=== PATIENT | male | born 1975 | race Caucasian/White ===

== ENCOUNTER 2018-04-10 20:49 | Observation (INO) | payer BC, OTHER, SELFPAY ==
[2018-04-10 22:21] LABS: Absolute Lymphocytes (CBC) 2.4 K/uL (0.7-4.9); Absolute Monocytes 0.8 K/uL (0.1-1.3); Absolute Neutrophil 5.2 K/uL (1.8-8.0); Eosinophils % 2.1 % (0-4.4); Hematocrit 47.5 % (39.6-49.0); Lymphocytes % 27.3 % (15.3-44.8); MPV 7.3 fL (7.6-11.3); Monocytes % 9.8 % (3.3-12.3); RBC Red Blood Cell Count 5.57 M/uL (4.33-5.43)
--- NOTE | 2018-04-10 22:26 | EDPHYS ---
Physician Documentation [facility] Name: Shaquille Delgadillo Age: 42 yrs Sex: Male : 1975 Arrival Date: 04/10/2018 Time: 20:52 Bed 14 Private MD: ED Physician Javon Stevenson HPI: 04/10 22:16 This 42 yrs old Male presents to ER via EMS with complaints of chest pain, romeo anxious. 22:16 The patient or guardian reports chest pain that is located primarily in the anterior romeo chest wall, bilaterally. Onset: just prior to arrival. The pain radiates to back. Associated signs and symptoms: Pertinent positives: shortness of breath. The chest pain is described as dull, a pressure. Duration: The patient or guardian reports a single episode, that is still ongoing. Modifying factors: The symptoms are alleviated by nothing. the symptoms are aggravated by nothing. Severity of pain: At its worst the pain was mild in the emergency department the pain is unchanged. Historical: - Allergies: 20:50 Bactrim; cc3 20:50 PENICILLINS; cc3 - Home Meds: 20:50 Adderall XR 25 mg Oral cp24 1 cap once daily [Active]; cc3 - PMHx: 20:50 ADD/ADHD; Anxiety; panic attacks; tourretts; cc3 - PSHx: 20:50 Cholecystectomy; cc3 - Immunization history:: Adult Immunizations not up to date. - Social history:: Smoking status: Patient/guardian denies using tobacco, never smoked. - Ebola Screening: : No symptoms or risks identified at this time. - Family history:: not pertinent. ROS: 22:16 Constitutional: Negative for fever, chills, and weight loss, Eyes: Negative for injury, romeo pain, redness, and discharge, ENT: Negative for injury, pain, and discharge, Neck: Negative for injury, pain, and swelling, Abdomen/GI: Negative for abdominal pain, nausea, vomiting, diarrhea, and constipation, Back: Negative for injury and pain, : Negative for injury, bleeding, discharge, and swelling, MS/Extremity: Negative for injury and deformity, Skin: Negative for injury, rash, and discoloration, Neuro: Negative for headache, weakness, numbness, tingling, and seizure, Psych: Negative for depression, anxiety, suicide ideation, homicidal ideation, and hallucinations, Allergy/Immunology: Negative for hives, rash, and allergies, Endocrine: Negative for neck swelling, polydipsia, polyuria, polyphagia, and marked weight changes, Hematologic/Lymphatic: Negative for swollen nodes, abnormal bleeding, and unusual bruising. 22:16 Cardiovascular: Positive for chest pain. 22:16 Respiratory: Positive for shortness of breath, at rest. 22:16 MS/extremity: Negative for acute changes. Exam: 22:16 Constitutional: This is a well developed, well nourished patient who is awake, alert, romeo and in no acute distress. Head/Face: Normocephalic, atraumatic. Eyes: Pupils equal round and reactive to light, extra-ocular motions intact. Lids and lashes normal. Conjunctiva and sclera are non-icteric and not injected. Cornea within normal limits. Periorbital areas with no swelling, redness, or edema. ENT: Nares patent. No nasal discharge, no septal abnormalities noted. Tympanic membranes are normal and external auditory canals are clear. Oropharynx with no redness, swelling, or masses, exudates, or evidence of obstruction, uvula midline. Mucous membranes moist. Neck: Trachea midline, no thyromegaly or masses palpated, and no cervical lymphadenopathy. Supple, full range of motion without nuchal rigidity, or vertebral point tenderness. No Meningismus. Chest/axilla: Normal chest wall appearance and motion. Nontender with no deformity. No lesions are appreciated. Cardiovascular: Regular rate and rhythm with a normal S1 and S2. No gallops, murmurs, or rubs. Normal PMI, no JVD. No pulse deficits. Respiratory: Lungs have equal breath sounds bilaterally, clear to auscultation and percussion. No rales, rhonchi or wheezes noted. No increased work of breathing, no retractions or nasal flaring. Abdomen/GI: Soft, non-tender, with normal bowel sounds. No distension or tympany. No guarding or rebound. No evidence of tenderness throughout. Back: No spinal tenderness. No costovertebral tenderness. Full range of motion. Male : Normal genitalia with no discharge or lesions. Skin: Warm, dry with normal turgor. Normal color with no rashes, no lesions, and no evidence of cellulitis. MS/ Extremity: Pulses equal, no cyanosis. Neurovascular intact. Full, normal range of motion. Neuro: Awake and alert, GCS 15, oriented to person, place, time, and situation. Cranial nerves II-XII grossly intact. Motor strength 5/5 in all extremities. Sensory grossly intact. Cerebellar exam normal. Normal gait. Psych: Awake, alert, with orientation to person, place and time. Behavior, mood, and affect are within normal limits. 22:16 Musculoskeletal/extremity: ROM: no acute changes, Circulation is intact in all extremities. Tendon exam: DVT Exam: No signs of deep vein thrombosis. no pain, no swelling, no tenderness, negative Homans' sign noted on exam, no appreciated bluish discoloration, no erythema, no increased warmth. Vital Signs: 20:50 BP 124 / 93; Pulse 84; Resp 20 S; Temp 98.3(O); Pulse Ox 95% on R/A; Weight 79.38 kg cc3 (R); Height 5 ft. 8 in. (172.72 cm) (R); Pain 5/10; 21:30 BP 124 / 94; Pulse 77; Resp 20 S; Pulse Ox 98% on 2 lpm NC; 3 22:30 BP 127 / 99; Pulse 88; Resp 20 S; Pulse Ox 98% on 2 lpm NC; 3 23:45 BP 131 / 95; Pulse 88; Resp 19 S; Pulse Ox 98% on 2 lpm NC; 3 04/11 00:30 BP 128 / 95; Pulse 82; Resp 19 S; Pulse Ox 100% on 2 lpm NC; 3 01:30 BP 131 / 96; Pulse 76; Resp 20 S; Pulse Ox 99% on 2 lpm NC; [facility] 04/10 20:50 Body Mass Index 26.61 (79.38 kg, 172.72 cm) [facility] MDM: 04/10 21:09 Patient medically screened. [facility] 22:16 Data reviewed: vital signs, nurses notes, lab test result(s), EKG, radiologic studies, romeo plain films. 04/10 22:04 Order name: Basic Metabolic Panel; Complete Time: 23:25 3 04/10 22:04 Order name: CBC with Diff; Complete Time: 23:25 [facility] 04/10 22:04 Order name: LFT's; Complete Time: 23:25 [facility] 04/10 22:04 Order name: Magnesium; Complete Time: 23:25 cc3 04/10 22:04 Order name: NT PRO-BNP; Complete Time: 23:25 cc3 04/10 22:04 Order name: PT-INR; Complete Time: 23:25 cc3 04/10 22:04 Order name: Troponin (emerg Dept Use Only); Complete Time: 23:25 cc3 04/11 01:00 Order name: CKMB Creatine Kinase MB EDAK 04/11 01:00 Order name: CKMB Creatine Kinase MB EDAK 04/11 01:00 Order name: Creatine Phosphokinase EDAK 04/11 01:00 Order name: Creatine Phosphokinase EDAK 04/11 01:00 Order name: Lipid Profile EDAK 04/11 01:00 Order name: Troponin I EDAK 04/11 01:00 Order name: Troponin I EDAK 04/10 22:04 Order name: XRAY Chest (1 view) cc3 04/10 22:04 Order name: EKG; Complete Time: 22:05 3 04/10 22:04 Order name: Cardiac monitoring; Complete Time: 22:04 cc3 04/10 22:04 Order name: EKG - Nurse/Tech; Complete Time: 22:04 cc3 04/10 22:04 Order name: IV Saline Lock; Complete Time: 22:04 cc3 04/10 22:04 Order name: Labs collected and sent; Complete Time: 22:15 cc3 04/10 22:04 Order name: O2 Per Protocol; Complete Time: 22:05 3 04/10 22:04 Order name: O2 Sat Monitoring; Complete Time: 22:05 cc3 04/11 00:59 Order name: Heart Healthy EDAK 04/11 00:59 Order name: Echo with Doppler EDMS 04/11 00:59 Order name: EKG Electrocardiogram EDAK 04/11 00:59 Order name: EKG Electrocardiogram EDAK Administered Medications: 22:45 Drug: Aspirin 162 mg Route: PO; cc3 23:00 Follow up: Response: No adverse reaction cc3 22:45 Drug: Lopressor 25 mg Route: PO; cc3 23:00 Follow up: Response: No adverse reaction cc3 22:50 Drug: Lovenox 80 mg Route: Sub-Q; Site: right lower abdomen; cc3 23:00 Follow up: Response: No adverse reaction 3 Disposition: 04/10/18 22:26 Hospitalization ordered by Ronen Cárdenas for Observation. Preliminary diagnosis are Other chest pain, Essential (primary) hypertension, Anxiety disorder, unspecified. - Bed requested for Telemetry/MedSurg (observation). - Status is Observation. cc3 - Condition is Stable. - Problem is new. - Symptoms have improved. UTI on Admission? No Signatures: Dispatcher [employer] EDMS Lizeth Doran RN RN mw Anderson, Corey, MD MD cha Cordel, Charlene cc3 Corrections: (The following items were deleted from the chart) 04/11 01:04 04/10 22:26 Hospitalization Ordered by Ronen Cárdenas MD for Observation. Preliminary diagnosis is Other chest pain; Essential (primary) hypertension; Anxiety disorder, unspecified. Bed requested for Telemetry/MedSurg (observation). Status is Observation. Condition is Stable. Problem is new. Symptoms have improved. UTI on Admission? No. romeo 04/11 01:56 01:04 04/10/2018 22:26 Hospitalization Ordered by Ronen Cárdenas MD for Observation. cc3 Preliminary diagnosis is Other chest pain; Essential (primary) hypertension; Anxiety disorder, unspecified. Bed requested for Telemetry/MedSurg (observation). Status is Observation. Condition is Stable. Problem is new. Symptoms have improved. UTI on Admission? No. monet
--- NOTE | 2018-04-10 22:26 | ER ---
Nurse's Notes [facility] Name: Shaquille Delgadillo Age: 42 yrs Sex: Male : 1975 Arrival Date: 04/10/2018 Time: 20:52 Bed 14 Private MD: Diagnosis: Other chest pain;Essential (primary) hypertension;Anxiety disorder, unspecified Presentation: 04/10 20:50 Presenting complaint: EMS states: intermittent central chest pain and heaviness since cc3 2-3 days. Transition of care: patient was not received from another setting of care. Onset of symptoms was April 10, 2018. Risk Assessment: Do you want to hurt yourself or someone else? Patient reports no desire to harm self or others. Initial Sepsis Screen: Does the patient meet any 2 criteria? No. Patient's initial sepsis screen is negative. Does the patient have a suspected source of infection? No. Patient's initial sepsis screen is negative. Care prior to arrival: None. 20:50 Method Of Arrival: EMS: BASF cc3 20:50 Acuity: RAYNA 3 cc3 Triage Assessment: 20:50 General: Appears in no apparent distress. comfortable, Behavior is calm, cooperative, cc3 appropriate for age. Pain: Complains of pain in central chest. EENT: No signs and/or symptoms were reported regarding the EENT system. Neuro: Level of Consciousness is awake, alert, obeys commands, Oriented to person, place, time, situation, Appropriate for age. Cardiovascular: Reports chest pain, since 2-3 days Patient's skin is warm and dry. Respiratory: Airway is patent Respiratory effort is even, unlabored, Respiratory pattern is regular, symmetrical. GI: Abdomen is round non-distended. : No signs and/or symptoms were reported regarding the genitourinary system. Derm: No signs and/or symptoms reported regarding the dermatologic system. Musculoskeletal: Circulation, motion, and sensation intact. Range of motion: intact in all extremities. Historical: - Allergies: 20:50 Bactrim; cc3 20:50 PENICILLINS; cc3 - Home Meds: 20:50 Adderall XR 25 mg Oral cp24 1 cap once daily [Active]; cc3 - PMHx: 20:50 ADD/ADHD; Anxiety; panic attacks; tourretts; cc3 - PSHx: 20:50 Cholecystectomy; cc3 - Immunization history:: Adult Immunizations not up to date. - Social history:: Smoking status: Patient/guardian denies using tobacco, never smoked. - Ebola Screening: : No symptoms or risks identified at this time. - Family history:: not pertinent. Screenin:50 Abuse screen: Denies threats or abuse. Denies injuries from another. Nutritional cc3 screening: No deficits noted. Tuberculosis screening: No symptoms or risk factors identified. Fall Risk Ambulatory Aid- None/Bed Rest/Nurse Assist (0 pts). Gait- Normal/Bed Rest/Wheelchair (0 pts) Mental Status- Oriented to own ability (0 pts). Assessment: 20:50 General: see triage assessment. cc3 21:35 Reassessment: Patient appears in no apparent distress at this time. Patient and/or cc3 family updated on plan of care and expected duration. Pain level reassessed. Patient is alert, oriented x 3, equal unlabored respirations, skin warm/dry/pink. 22:45 Reassessment: Patient appears in no apparent distress at this time. Patient and/or cc3 family updated on plan of care and expected duration. Pain level reassessed. Patient is alert, oriented x 3, equal unlabored respirations, skin warm/dry/pink. 23:18 Reassessment: Patient appears in no apparent distress at this time. Patient and/or cc3 family updated on plan of care and expected duration. Pain level reassessed. Patient is alert, oriented x 3, equal unlabored respirations, skin warm/dry/pink. 04/11 00:13 Reassessment: Patient appears in no apparent distress at this time. Patient and/or cc3 family updated on plan of care and expected duration. Pain level reassessed. Patient is alert, oriented x 3, equal unlabored respirations, skin warm/dry/pink. 01:15 Reassessment: Repeat Troponin, cpk, ckmb taken and sent to lab as ordered. cc3 01:35 Reassessment: Patient appears in no apparent distress at this time. Patient and/or cc3 family updated on plan of care and expected duration. Pain level reassessed. Patient is alert, oriented x 3, equal unlabored respirations, skin warm/dry/pink. Patient for admission, room available at 206, report called and handed over to MARIA M Benitez for continuity of care. 01:56 Reassessment: Patient left ER for admission vitally stable by wheelchair and on oxygen cc3 escorted by denture laboratory technician Raegan. Vital Signs: 04/10 20:50 BP 124 / 93; Pulse 84; Resp 20 S; Temp 98.3(O); Pulse Ox 95% on R/A; Weight 79.38 kg cc3 (R); Height 5 ft. 8 in. (172.72 cm) (R); Pain 5/10; 21:30 BP 124 / 94; Pulse 77; Resp 20 S; Pulse Ox 98% on 2 lpm NC; cc3 22:30 BP 127 / 99; Pulse 88; Resp 20 S; Pulse Ox 98% on 2 lpm NC; cc3 23:45 BP 131 / 95; Pulse 88; Resp 19 S; Pulse Ox 98% on 2 lpm NC; cc3 04/11 00:30 BP 128 / 95; Pulse 82; Resp 19 S; Pulse Ox 100% on 2 lpm NC; cc3 01:30 BP 131 / 96; Pulse 76; Resp 20 S; Pulse Ox 99% on 2 lpm NC; cc3 04/10 20:50 Body Mass Index 26.61 (79.38 kg, 172.72 cm) cc3 ED Course: 04/10 20:50 Arm band placed on right wrist. Patient notified of wait time. cc3 20:50 Patient has correct armband on for positive identification. Placed in gown. Bed in low cc3 position. Call light in reach. Side rails up X 1. telemetry monitor on. Pulse ox on. NIBP on. 20:52 Patient arrived in ED. al2 21:02 Magnolia Armstrong is Primary Nurse. cc3 21:09 Javon Stevenson MD is Attending Physician. [facility] 21:19 Triage completed. cc3 21:50 Inserted saline lock: 20 gauge in right antecubital area, using aseptic technique. cc3 Blood collected. 22:24 XRAY Chest (1 view) In Process Unspecified. EDMS 22:25 Ronen Cárdenas MD is Hospitalizing Provider. [facility] 04/11 01:35 No provider procedures requiring assistance completed. Patient admitted, IV remains in cc3 place. Administered Medications: 04/10 22:45 Drug: Aspirin 162 mg Route: PO; cc3 23:00 Follow up: Response: No adverse reaction cc3 22:45 Drug: Lopressor 25 mg Route: PO; cc3 23:00 Follow up: Response: No adverse reaction cc3 22:50 Drug: Lovenox 80 mg Route: Sub-Q; Site: right lower abdomen; cc3 23:00 Follow up: Response: No adverse reaction cc3 Outcome: 22:26 Decision to Hospitalize by Provider. romeo 04/11 01:35 Admitted to Med/surg accompanied by tech, via wheelchair, room 206, with oxygen, with cc3 chart, Report called to MARIA M Benitez Condition: stable Instructed on the need for admit, Demonstrated understanding of instructions. 01:56 Patient left the ED. cc3 Signatures: Dispatcher [employer] EDJavon Hastings MD MD cha Love, Magnolia De La O cc3
[2018-04-10 22:27] LABS: Protime INR 1.03
[2018-04-10 22:45] LABS: ALT/SGPT 31 U/L (12-78); AST/SGOT 18 U/L (15-37); Albumin 3.6 g/dL (3.4-5.0); Alkaline Phosphatase 105 U/L (45-117); BUN Blood Urea Nitrogen 14 mg/dL (7-18); Bicarbonate 28 mmol/L (21-32); Bilirubin Direct < 0.1 mg/dL (0-0.2); Bilirubin Total 0.2 mg/dL (0.2-1.0); Glucose Level 105 mg/dL (74-106); Magnesium 2.2 mg/dL (1.8-2.4); NT PRO-BNP 5 pg/mL (<125); Protein, Total 7.1 g/dL (6.4-8.2); Sodium Level 140 mmol/L (136-145); Troponin (Emerg Dept Use Only) < 0.02 ng/mL (0.0-0.045)
[2018-04-10] MEDS ORDERED: ASPIRIN 81 MG CHEWABLE TABLET ONE (22:50)
[2018-04-10] MEDS ORDERED: METOPROLOL TAR 25 MG TAB ONE (22:51)
[2018-04-10] MEDS ORDERED: ENOXAPARIN 80 MG/0.8 ML SQ ONE (22:51)
[2018-04-11] MEDS ORDERED: MORPHINE 4 MG/ML SYR IV PRN (00:55)
[2018-04-11] MEDS ORDERED: ACETAMINOPHEN 500 MG TAB PO PRN (00:55)
[2018-04-11] MEDS ORDERED: ALPRAZOLAM 0.25 MG TABLET PO PRN (00:55)
[2018-04-11 01:50] LABS: CKMB Creatine Kinase MB 1.2 ng/mL (0.3-3.6); Creatine Phosphokinase 90 U/L (39-308); Troponin I < 0.02 ng/mL (0.0-0.045)
[2018-04-11 02:10] VITALS: BMI 27.3
[2018-04-11 02:52] VITALS: O2SAT 99
[2018-04-11 02:57] LABS: Urine Appearance TURBID; Urine Bilirubin NEGATIVE (NEG); Urine Blood NEGATIVE (NEG); Urine Color YELLOW; Urine Glucose NEGATIVE (NEG); Urine Protein NEGATIVE (NEG); Urine Specific Gravity 1.025 (1.005-1.030)
[2018-04-11 03:07] LABS: Urine Microscopic Reflex ORDER UMIC
[2018-04-11 03:29] LABS: Urine Amorphous Sediment 4+ /HPF (NONE SEEN); Urine Bacteria <20 /HPF (NONE SEEN); Urine Culture Reflex Order NOT NEEDED; Urine RBC NONE SEEN /HPF (NONE SEEN)
[2018-04-11] MEDS ORDERED: GUAIFENESIN/CODEINE 5ML UCUP PO PRN (05:00)
[2018-04-11 06:42] LABS: CKMB Creatine Kinase MB < 1.0 ng/mL (0.3-3.6); Creatine Phosphokinase 90 U/L (39-308); HDL Cholesterol 40 mg/dL (40-60); LDL Cholesterol, Calculated 93 (<130); Troponin I < 0.02 ng/mL (0.0-0.045)
[2018-04-11] MEDS ORDERED: INFLUENZA VACCINE (for 3y+) 0.5 ML DOSE IMVAC ONE (08:00)
--- NOTE | 2018-04-11 08:51 | RAD REPORT ---
EXAM DESCRIPTION: RAD - Chest Single View - 04/10/2018 10:24 pm CLINICAL HISTORY: Chest pain COMPARISON: July 2016 TECHNIQUE: AP portable chest image was obtained 2221 hours . FINDINGS: No focal lung parenchymal process. No failure or volume overload. Lung markings match the prior study. Heart and vasculature are normal. No measurable pleural effusion and no pneumothorax. No acute bony abnormality seen. No acute aortic findings suspected. IMPRESSION: No acute cardiopulmonary process. No significant change from comparison.
[2018-04-11] MEDS ORDERED: ASPIRIN EC 81 MG TAB PO SCH (09:00)
[2018-04-11] MEDS ORDERED: METOPROLOL TAR 50 MG TAB PO SCH (09:00)
[2018-04-11] MEDS ORDERED: ENOXAPARIN 40 MG/0.4 ML SQ SCH (09:00)
--- NOTE | 2018-04-11 10:48 | P.HP ---
Certification for Inpatient Patient admitted to: Observation With expected LOS: <2 Midnights Patient will require the following post-hospital care: None Practitioner: I am a practitioner with admitting privileges, knowledge of patient current condition, hospital course, and medical plan of care. Services: Services provided to patient in accordance with Admission requirements found in Title 42 Section 412.3 of the Code of Federal Regulations Patient History Date of Service: 04/11/18 Reason for admission: chest pain rule out acute coronary syndrome History of Present Illness: Patient is a 42-year-old gentleman came to the hospital with chest discomfort. Pain was mainly the sternal region. Patient's symptoms improved after treatment in the emergency room. Patient did not have any lightheadedness nor did he have diaphoresis or shortness of breath. The pain was mainly in the sternal region. Patient was brought in for further evaluation. Patient's EKG and troponins are negative. Further cardiac workup in the morning and possible discharge home in a.m.. Allergies Penicillins Allergy (Verified 04/11/18 02:11) Hives/Rash sulfamethoxazole [From Bactrim] Allergy (Verified 04/11/18 02:11) Hives/Rash trimethoprim [From Bactrim] Allergy (Verified 04/11/18 02:11) Hives/Rash Home Medications: Dextroamphetamine/Amphetamine [Adderall 30 mg Tablet] 1 tab PO DAILY 04/11/18 - Past Medical/Surgical History Has patient received pneumonia vaccine in the past: No Diabetic: No -: anxiety -: panic attack -: ADHD -: cholecyctectomy - Family History Father Medical History: Diabetes Mother Medical History: Heart disease - Social History Smoking Status: Never smoker Alcohol use: Yes CD- Drugs: No Caffeine use: Yes Place of Residence: Home Review of Systems 10-point ROS is otherwise unremarkable Physical Examination - Vital Signs Temperature: 98.2 F Blood Pressure: 119/77 Pulse: 77 Respirations: 14 Pulse Ox (%): 98 - Physical Exam General: Alert, In no apparent distress, Oriented x3 HEENT: Atraumatic, PERRLA, Mucous membr. moist/pink, EOMI, Sclerae nonicteric Neck: Supple, 2+ carotid pulse no bruit, No LAD, Without JVD or thyroid abnormality Respiratory: Clear to auscultation bilaterally, Normal air movement Cardiovascular: Regular rate/rhythm, Normal S1 S2 Gastrointestinal: Normal bowel sounds, Soft and benign, Non-distended, No tenderness Musculoskeletal: No clubbing, No swelling, No tenderness Integumentary: No rashes Neurological: Normal gait, Normal speech, Normal strength at 5/5 x4 extr, Normal tone, Sensation intact, Cranial nerves 3-12 intact, Normal affect Lymphatics: No axilla or inguinal lymphadenopathy - Studies Laboratory Data (last 24 hrs) 04/10/18 21:50: PT 12.2, INR 1.03 04/10/18 21:50: WBC 8.7, Hgb 15.9, Hct 47.5, Plt Count 282 04/10/18 21:50: Sodium 140, Potassium 4.0, BUN 14, Creatinine 1.06, Glucose 105 , Magnesium 2.2, Total Bilirubin 0.2, AST 18, ALT 31, Alkaline Phosphatase 105 Assessment & Plan - Problems (Diagnosis) (1) Chest pain, rule out acute myocardial infarction Current Visit: Yes Status: Acute - Plan 1. Serial troponins and EKG 2. monitor labs an outpatient cardiology follow-up 3. Echocardiogram and outpatient stress testing if needed 4. Anti-platelet therapy, anti coagulation, beta-zion, statin, and O2 as needed 5. IV morphine for pain 6. Nitro p.r.n. Discharge Plan: Home Plan to discharge in: 24 Hours - Advance Directives Does patient have a Living Will: No Does patient have a Durable POA for Healthcare: No - Code Status/Comfort Care Code Status Assessed: Yes Code Status: Full Code Critical Care: No Time Spent Managing PTS Care (In Minutes): 50
--- NOTE | 2018-04-11 16:00 | ECHO ---
HEIGHT: 5 ft 8 in WEIGHT: 179 lb 8 oz DATE OF STUDY: 04/11/[address]: Ronen Cárdenas MD 2-DIMENSIONAL: YES M.MODE: YES DOPPLER: YES COLOR FLOW: YES TDS: NO PORTABLE: NO DEFINITY: NO BUBBLE STUDY: NO DIAGNOSIS: CHEST PAIN TO RULE OUT ACUTE CORONARY SYNDROME CARDIAC HISTORY: CATHERIZATION: NO SURGERY: NO PROSTHETIC VALVE: NO PACEMAKER: NO MEASUREMENTS (cm) DIASTOLIC (NORMALS) SYSTOLIC (NORMALS) IVSd 0.8 (0.6-1.2) LA Diam 2.2 (1.9-4.0) LVEF 53% LVIDd 3.6 (3.5-5.7) LVIDs 2.7 (2.0-3.5) %FS 26% LVPWd 1.0 (0.6-1.2) Ao Diam 2.3 (2.0-3.7) 2 DIMENSIONAL ASSESSMENT: RIGHT ATRIUM: NORMAL LEFT ATRIUM: NORMAL RIGHT VENTRICLE: NORMAL LEFT VENTRICLE: NORMAL TRICUSPID VALVE: NORMAL MITRAL VALVE: NORMAL PULMONIC VALVE: NORMAL AORTIC VALVE: NORMAL PERICARDIAL EFFUSION: NONE AORTIC ROOT: NORMAL LEFT VENTRICULAR WALL MOTION: NORMAL. DOPPLER/COLOR FLOW: NORMAL. COMMENTS: NORMAL 2D ECHOCARDIOGRAM WITH DOPPLER. TECHNOLOGIST: LAINEY HURD
[2018-04-11 16:08] VITALS: BP 110/66; TEMP 98.1
--- NOTE | 2018-04-11 16:17 | EKG ---
Test Date: 2018-04-10 Test Time: 21:32:01 Assistant Pressman: ESTEBAN MEASUREMENT RESULTS: Intervals: Rate: 74 AR: 140 QRSD: 84 QT: 356 QTc: 395 Ronald: P: 48 AR: 140 QRS: 44 T: 39 INTERPRETIVE STATEMENTS: Normal sinus rhythm with sinus arrhythmia Normal ECG Compared to ECG 07/22/2016 16:29:44 Sinus tachycardia no longer present Electronically Signed On 04-11-18 16:16:55 CLERICAL WAREHOUSEMAN by Paul Silver
== END 2018-04-11 17:21 | disposition home or self-care (01) ==
LOC: ER 20:49 → ERHOLD 04-11 00:55 → 2ND 04-11 01:40
PROVIDERS: ADMIT Hospitalist; ATTEND Hospitalist
DX: R07.9 Chest pain, unspecified (principal); F41.9 Anxiety disorder, unspecified; F90.9 Attention-deficit hyperactivity disorder, unspecified type; Z88.0 Allergy status to penicillin; Z88.2 Allergy status to sulfonamides
CPT/HCPCS: 36415; 71045; 80048; 80061; 80076; 81003; 81015; 82550; 82553; 83735; 83880; 84484; 85025; 85610; 87070; 87205; 93005; 93306; 96372; 99285; G0378; J1650

== ENCOUNTER 2018-12-27 14:12 | Emergency (ER) | payer OTHER ==
[2018-12-27] MEDS ORDERED: MORPHINE 4 MG/ML SYR ONE (14:32)
[2018-12-27] MEDS ORDERED: ONDANSETRON 4 MG/2 ML VIAL ONE (14:32)
[2018-12-27] MEDS ORDERED: NA CHLORIDE 0.9% 1,000 ML ONE (14:33)
[2018-12-27 14:39] LABS: Absolute Lymphocytes (CBC) 2.4 K/uL (0.7-4.9); Basophils % 0.9 % (0-1.3); Hematocrit 50.1 % (39.6-49.0); Lymphocytes % 23.3 % (15.3-44.8); RBC Red Blood Cell Count 5.84 M/uL (4.33-5.43)
[2018-12-27 14:57] LABS: Albumin 3.9 g/dL (3.4-5.0); Bilirubin Direct 0.1 mg/dL (0-0.2); Bilirubin Total 0.3 mg/dL (0.2-1.0); Potassium 4.4 mmol/L (3.5-5.1); Protein, Total 7.9 g/dL (6.4-8.2)
--- NOTE | 2018-12-27 15:26 | RAD REPORT ---
EXAM DESCRIPTION: CT - Stone Protocol - 12/27/2018 3:11 pm CLINICAL HISTORY: Right lower quadrant pain, right flank pain COMPARISON: None. TECHNIQUE: Axial 5 mm thick images were obtained without oral or IV contrast. The [id number] span s the entirety of the system partially obscuring uppermost abdomen and lung bases. All CT scans are performed using dose optimization technique as appropriate and may include automated exposure control or mA/KV adjustment according to patient size. FINDINGS: [id number] right-sided hydronephrosis is present secondary to a 5 millimeter stone l ocated at the pelvic inlet. When viewed from a KUB projection the stone is superimposed on the lower aspect right sacral ala. Punctate nonobstructing calculus is seen in the lower pole of the right kidn ey. No left-sided hydronephrosis or left stone. Right kidney is edematous when compared to the left. No suspicious renal masses. Isodense masses and pyelonephritis are not excluded on a stone protocol C T scan. No bladder calculus. No bladder wall thickening or mass. No significant adrenal finding. Imaged portions of the liver, spleen and pancreas show no suspicious findings on non-contrast imaging . Cholecystectomy clips are present. No biliary tree dilatation. No suspicious bowel findings. Bowel assessment is limited in the absence of oral and IV contrast. Cec um is low lying along the anterior floor the pelvis. No appendicitis. No hernia, mass or bulky lymphadenopathy noted. No free air, free fluid or inflammatory stranding. No significant bony abnormality. IMPRESSION: Mild to moderate right hydronephrosis secondary to a 5 mm obstructing calculus at the pe lvic inlet. When viewed from a KUB projection, the obstructing calculus superimposed on the inferior right sacral ala. Isodense masses and pyelonephritis are not excluded on stone protocol technique.
[2018-12-27] MEDS ORDERED: KETOROLAC 30 MG/ML INJ ONE (15:47)
[2018-12-27] MEDS ORDERED: TAMSULOSIN 0.4 MG SR CAP ONE (15:47)
[2018-12-27] MEDS ORDERED: MAGNESIUM SULFATE 1 gm IVPB 1 GM/100 ML BAG IV ONE (15:48)
[2018-12-27] MEDS ORDERED: CEFTRIAXONE/SWI 1gm 1 GM/10 ML SYR ONE (15:48)
[2018-12-27 16:07] LABS: Urine Blood 2+ (NEG); Urine Glucose NEGATIVE (NEG); Urine Protein NEGATIVE (NEG)
[2018-12-27 16:20] LABS: Urine Bacteria <20 /HPF (NONE SEEN); Urine Culture Reflex Order NOT NEEDED
--- NOTE | 2018-12-27 16:47 | ER ---
Nurse's Notes [facility] Name: Shaquille Delgadillo Age: 43 yrs Sex: Male : 1975 Arrival Date: 12/27/2018 Time: 14:14 Bed 25 Private MD: Diagnosis: Calculus of ureter-right Presentation: 12/27 14:23 Presenting complaint: Patient states: RLQ pain that radiates towards testicles, began ss today. Patient reports this pain occurred once before a week ago, but went away and was located more towards R flank area. Transition of care: patient was not received from another setting of care. Onset of symptoms was December 27, 2018. Risk Assessment: Do you want to hurt yourself or someone else? Patient reports no desire to harm self or others. Initial Sepsis Screen: Does the patient meet any 2 criteria? No. Patient's initial sepsis screen is negative. Does the patient have a suspected source of infection? No. Patient's initial sepsis screen is negative. Care prior to arrival: None. 14:23 Acuity: RAYNA 3 ss 14:23 Method Of Arrival: Ambulatory ss Historical: - Allergies: 14:25 Bactrim; ss 14:25 PENICILLINS; ss - PMHx: 14:25 ADD/ADHD; Anxiety; Panic Attacks; tourretts; ss - PSHx: 14:25 Cholecystectomy; ss - Immunization history:: Adult Immunizations up to date. - Social history:: Smoking status: Patient/guardian denies using tobacco. - Ebola Screening: : Patient denies exposure to infectious person Patient denies travel to an Ebola-affected area in the 21 days before illness onset. Screenin:38 Abuse screen: Denies threats or abuse. Nutritional screening: No deficits noted. tr5 Tuberculosis screening: No symptoms or risk factors identified. Fall Risk None identified. Assessment: 14:38 General: Appears uncomfortable, Behavior is appropriate for age, restless. Pain: tr5 Complains of pain in right upper quadrant Pain radiates to groin Pain currently is 10 out of 10 on a pain scale. Quality of pain is described as crampy, Pain began 1 day ago. Is continuous. Neuro: Level of Consciousness is awake, alert, obeys commands, Oriented to person, place, time. Cardiovascular: Heart tones present Capillary refill < 3 seconds. Respiratory: Airway is patent Respiratory effort is even, unlabored, Respiratory pattern is regular, symmetrical. GI: Bowel sounds present X 4 quads. Abdomen is tender to palpation. : Reports Difficulty urinating. EENT: No signs and/or symptoms were reported regarding the EENT system. Derm: No signs and/or symptoms reported regarding the dermatologic system. Musculoskeletal: No signs and/or symptoms reported regarding the musculoskeletal system. 15:30 Reassessment: Patient appears in no apparent distress at this time. Patient and/or tr5 family updated on plan of care and expected duration. Pain level reassessed. Patient is alert, oriented x 3, equal unlabored respirations, skin warm/dry/pink. Patient states feeling better. Vital Signs: 14:25 BP 141 / 99; Pulse 72; Resp 20; Temp 97.9(TE); Pulse Ox 98% on R/A; Weight 83.91 kg; ss Height 5 ft. 8 in. (172.72 cm); Pain 9/10; 15:30 BP 126 / 86; Pulse 77; Resp 16; Pulse Ox 97% on R/A; tr5 14:25 Body Mass Index 28.13 (83.91 kg, 172.72 cm) ss ED Course: 14:14 Patient arrived in ED. as 14:17 Javon Cleveland PA is PHCP. cp 14:17 Guillermo Asif MD is Attending Physician. cp 14:24 Triage completed. ss 14:25 Arm band placed on right wrist. ss 14:31 Hubert Camara, RN is Primary Nurse. tr5 14:35 Initial lab(s) drawn, by tn, sent to lab. Inserted saline lock: 20 gauge in left jp3 antecubital area, using aseptic technique. Blood collected. 14:36 Bed in low position. Call light in reach. Verbal reassurance given. Pulse ox on. NIBP jp3 on. 14:36 Lipase Sent. jp3 14:36 Hepatic Function Sent. jp3 14:36 Creatinine for Radiology Sent. jp3 14:36 CBC with Diff Sent. jp3 15:[address] via wheelchair. tr5 15:10 CT completed. Patient tolerated procedure well. Patient moved back from CT. kw1 15:13 CT Stone Protocol: right side abdomen pain In Process Unspecified. EDMS 16:40 Brandon Burden MD is Referral Physician. cp 17:08 No provider procedures requiring assistance completed. IV discontinued. tr5 Administered Medications: 14:37 Drug: morphine 4 mg {Note: RASS:0.} Route: IVP; Site: left antecubital; tr5 15:40 Follow up: Response: Pain is decreased tr5 14:37 Drug: Zofran 4 mg Route: IVP; Site: left antecubital; tr5 15:39 Follow up: Response: Nausea is decreased tr5 14:38 Drug: NS 0.9% 1000 ml Route: IV; Rate: 1000 ml/hr; Site: left antecubital; tr5 15:59 Drug: Rocephin 1 grams Route: IV; Rate: calculated rate; Site: left antecubital; tr5 15:59 Drug: Magnesium Sulfate 1 grams Route: IVPB; Infused Over: 30 mins; Site: left tr5 antecubital; 15:59 Drug: Flomax 0.4 mg Route: PO; tr5 15:59 Drug: TORadol 30 mg Route: IVP; Site: left antecubital; tr5 Outcome: 16:47 Discharge ordered by MD. cp 17:08 Discharged to home ambulatory. tr5 17:08 Condition: stable 17:08 Discharge instructions given to patient, Instructed on discharge instructions, follow up and referral plans. Demonstrated understanding of instructions, follow-up care, medications, Prescriptions given X 4. 17:16 Patient left the ED. tr5 Signatures: Dispatcher [employer] Cara Piedra Shelby, RN RN ss Page, Corey, PA PA cp Wilhelm, Kimberly kw1 David Venegas jp3 Hubert Camara RN RN tr5
--- NOTE | 2018-12-27 16:48 | EDPHYS ---
Physician Documentation [facility] Name: Shaquille Delgadillo Age: 43 yrs Sex: Male : 1975 Arrival Date: 12/27/2018 Time: 14:14 Bed 25 Private MD: ED Physician Guillermo Asif HPI: 12/27 14:35 This 43 yrs old Male presents to ER via Ambulatory with complaints of cp Abdominal Pain. 14:35 The patient presents with abdominal pain right flank pain. Onset: The symptoms/episode cp began/occurred suddenly, this morning. The symptoms radiate to right testicle. Associated signs and symptoms: Pertinent positives: testicular pain, Pertinent negatives: blood in stools, constipation, diarrhea, fever, vomiting. The symptoms are described as constant. Severity of pain: in the emergency department the pain is unchanged despite EMS interventions. Historical: - Allergies: 14:25 Bactrim; ss 14:25 PENICILLINS; ss - PMHx: 14:25 ADD/ADHD; Anxiety; Panic Attacks; tourretts; ss - PSHx: 14:25 Cholecystectomy; ss - Immunization history:: Adult Immunizations up to date. - Social history:: Smoking status: Patient/guardian denies using tobacco. - Ebola Screening: : Patient denies exposure to infectious person Patient denies travel to an Ebola-affected area in the 21 days before illness onset. ROS: 14:45 Constitutional: Negative for body aches, chills, fever, poor PO intake. cp 14:45 Eyes: Negative for injury, pain, redness, and discharge. cp 14:45 ENT: Negative for drainage from ear(s), ear pain, sore throat, difficulty swallowing, difficulty handling secretions. 14:45 Respiratory: Negative for cough, wheezing. 14:45 Abdomen/GI: Positive for abdominal pain, nausea, vomiting, Negative for diarrhea, constipation, anorexia, black/tarry stool, rectal bleeding. 14:45 Skin: Negative for cellulitis, rash. 14:45 Neuro: Negative for altered mental status, headache, weakness. 14:45 All other systems are negative. Exam: 14:50 Head/Face: Normocephalic, atraumatic. cp 14:50 Constitutional: The patient appears in no acute distress, alert, awake, non-toxic, well developed, well nourished, in obvious pain, uncomfortable. 14:50 Eyes: Periorbital structures: appear normal, Conjunctiva: normal, no exudate, no injection, Sclera: no appreciated abnormality, Lids and lashes: appear normal, bilaterally. 14:50 ENT: External ear(s): are unremarkable, Nose: is normal, Mouth: is normal, Posterior cp pharynx: is normal, airway is patent, no erythema, no exudate. 14:50 Chest/axilla: Inspection: normal, Palpation: is normal, no crepitus, no tenderness. 14:50 Cardiovascular: Rate: normal, Rhythm: regular. 14:50 Respiratory: the patient does not display signs of respiratory distress, Respirations: normal, no use of accessory muscles, no retractions, no splinting, no tachypnea, labored breathing, is not present, Breath sounds: are clear throughout, no decreased breath sounds, no stridor, no wheezing. 14:50 Abdomen/GI: Inspection: abdomen appears normal, Bowel sounds: active, all quadrants, Palpation: soft, in all quadrants, severe abdominal tenderness, in the anterior aspect of right lateral abdomen and right lower quadrant, rebound tenderness, is not appreciated, voluntary guarding, is elicited in the anterior aspect of right lateral abdomen and right lower quadrant. 14:50 Skin: no rash present. 14:50 : Male external genitalia: normal, no swelling, no tenderness. cp Vital Signs: 14:25 BP 141 / 99; Pulse 72; Resp 20; Temp 97.9(TE); Pulse Ox 98% on R/A; Weight 83.91 kg; ss Height 5 ft. 8 in. (172.72 cm); Pain 9/10; 15:30 BP 126 / 86; Pulse 77; Resp 16; Pulse Ox 97% on R/A; tr5 14:25 Body Mass Index 28.13 (83.91 kg, 172.72 cm) ss MDM: 14:35 Patient medically screened. cp 15:00 Differential diagnosis: bowel obstruction, Pyelonephritis, Testicular Torsion, cp Ureterolithiasis, urinary tract infection. 16:46 Data reviewed: vital signs, nurses notes, lab test result(s), radiologic studies, CT cp scan, and as a result, I will discharge patient. 16:46 Counseling: I had a detailed discussion with the patient and/or guardian regarding: the cp historical points, exam findings, and any diagnostic results supporting the discharge/admit diagnosis, lab results, radiology results, to return to the emergency department if symptoms worsen or persist or if there are any questions or concerns that arise at home. Response to treatment: the patient's symptoms have markedly improved after treatment, VSS. Pain markedly improved and vomiting resolved. Will discharge to home for continued monitoring. 12/27 14:28 Order name: Basic Metabolic Panel; Complete Time: 15:31 cp 12/27 15:32 Interpretation: Normal except: GLUC 119; GFR 69. cp 12/27 14:28 Order name: CBC with Diff; Complete Time: 15:31 cp 12/27 15:32 Interpretation: Normal except: RBC 5.84; HCT 50.1; MPV 7.0. cp 12/27 14:28 Order name: Creatinine for Radiology; Complete Time: 15:31 cp 12/27 14:28 Order name: Hepatic Function; Complete Time: 15:31 cp 12/27 14:28 Order name: Lipase; Complete Time: 15:31 cp 12/27 14:28 Order name: UA MICROSCOPIC cp 12/27 14:29 Order name: CT Stone Protocol: right side abdomen pain; Complete Time: 15:31 cp 12/27 16:04 Order name: Urine Dipstick--Ancillary (enter results) eb 12/27 14:28 Order name: IV Saline Lock; Complete Time: 14:36 cp 12/27 14:28 Order name: Labs collected and sent; Complete Time: 14:36 cp 12/27 15:34 Order name: PO challenge; Complete Time: 15:59 cp Administered Medications: 14:37 Drug: morphine 4 mg {Note: RASS:0.} Route: IVP; Site: left antecubital; tr5 15:40 Follow up: Response: Pain is decreased tr5 14:37 Drug: Zofran 4 mg Route: IVP; Site: left antecubital; tr5 15:39 Follow up: Response: Nausea is decreased tr5 14:38 Drug: NS 0.9% 1000 ml Route: IV; Rate: 1000 ml/hr; Site: left antecubital; tr5 15:59 Drug: Rocephin 1 grams Route: IV; Rate: calculated rate; Site: left antecubital; tr5 15:59 Drug: Magnesium Sulfate 1 grams Route: IVPB; Infused Over: 30 mins; Site: left tr5 antecubital; 15:59 Drug: Flomax 0.4 mg Route: PO; tr5 15:59 Drug: TORadol 30 mg Route: IVP; Site: left antecubital; tr5 Disposition: 12/27/18 16:47 Discharged to Home. Impression: Calculus of ureter - right. - Condition is Stable. - Discharge Instructions: Kidney Stones, Renal Colic. - Prescriptions for Tylenol- Codeine #3 300-30 mg Oral Tablet - take 2 tablets by ORAL route every 6 hours As needed; 20 tablet. Zofran 4 mg Oral Tablet - take 1 tablet by ORAL route every 12 hours As needed; 20 tablet. Flomax 0.4 mg Oral Capsule, Sust. Release 24 hr - take 1 capsule by ORAL route once daily As needed 1/2 hour following the same meal each day; 7 capsule. Cipro 500 mg Oral Tablet - take 1 tablet by ORAL route every 12 hours for 7 days; 14 tablet. - Medication Reconciliation Form, Thank You Letter, Antibiotic Education, Prescription Opioid Use, Work release form form. - Follow up: Brandon Burden MD; When: 2 - 3 days; Reason: symptoms. - Problem is new. - Symptoms have improved. Signatures: Dispatcher [employer] EDJeanie Woodward RN RN Javon Bernard PA PA cp Rodriguez, Tommie, RN RN tr5 Corrections: (The following items were deleted from the chart) 17:16 16:47 12/27/2018 16:47 Discharged to Home. Impression: Calculus of ureter - right. tr5 Condition is Stable. Forms are Medication Reconciliation Form, Thank You Letter, Antibiotic Education, Prescription Opioid Use. Follow up: Brandon Burden; When: 2 - 3 days; Reason: symptoms. Problem is new. Symptoms have improved. cp
[2018-12-27 19:16] VITALS: TEMP 97.9
[2018-12-27 19:18] VITALS: BP 126/86; O2SAT 97
== END 2018-12-27 17:16 | disposition home or self-care (01) ==
LOC: ER 14:12
DX: N20.1 Calculus of ureter (principal); Z88.0 Allergy status to penicillin; Z88.1 Allergy status to other antibiotic agents
CPT/HCPCS: 85025; 80048; 36415; 80076; 83690; 76377; 74176; 96375; 96374; 99284; J3475; J0696; J7030; J2405; 81003; 81015

== ENCOUNTER → 2023-05-22 | Emergency (ER) | payer OTHER, SELFPAY ==
--- OUTSIDE RECORDS SUMMARY | 2023-05-22 20:17 | XMS REPORT | Continuity of Care Document ---
Author Name Unknown Address [address] [facility] [address] [place] [address] [facility] thconnect Address [address] [facility] 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 [address] 94 ON 9 [id number] 2023 00:00:00 [facility] 2 [id number] 2020 00:00:00 Problems Condition Name Condition Details Condition Category Status Onset Date Resolution Date Last Treatment Date Treating Clinician Comments Source Well adult exam Well adult exam Disease Active 11-05 00:00: 00 Hannah Corona - Externa l Hiatal hernia with GERD Hiatal hernia with GERD Disease Active 11-05 00:00: 00 Hannah Corona - Externa l Acute pain of right shoulder Acute pain of right shoulder Disease Active 2021-03 00:00: 00 Hannah Corona - Externa l Attention deficit hyperactiv ity disorder (ADHD) Attention deficit hyperactiv ity disorder (ADHD) Disease Active 10-10 00:00: 00 Hannah richardson Tourette's - Unchanged Tourette's - Unchanged Disease Active 10-10 00:00: 00 Hannah Dooleya l Kidney stone Kidney stone Problem Active [facility] Hydronephr osis with urinary obstructio n due to renal calculus Hydronephr osis with urinary obstructio n due to renal calculus Problem Active [facility] Allergies, Adverse Reactions, Alerts Allergy Name Allergy Type Status Severity Reaction(s) Onset Date Inactive Date Treating Clinician Comments Source Na Benzoate -Sulfame thoxazol e-Trimet hoprim Propensi ty to adverse reaction s Active Nausea and Vomiting 04-07 00:00: 00 Other reaction( s): Unknown Hannah richardson Bactrim Adverse Reaction Active Info Not Available [facility] Social History Social Habit Start Date Stop Date Quantity Comments Source Exposure to SARS-CoV-2 (event) Not sure Hannah gonzalez Gender identity Tawana Corona - External Sexual orientation José Luis Corona - External Alcohol intake 2023-03-08 00:00:00 2023-03-08 00:00:00 Ex-drinker (finding) Hannah Corona - External History of Social function 2022-11-26 00:00:00 2022-11-26 00:00:00 Hannah Corona - External Tobacco use and exposure 2022-11-05 00:00:00 2022-11-05 00:00:00 Smokeless tobacco non-user Hannah Corona - External Education - What is the highest level of school you have completed or the highest degree you have received? 2022-11-05 00:00:00 2022-11-05 00:00:00 Bachelor's degree (e.g., BA, AB, BS) Hannah Corona - External Sex Assigned At 1975 00:00:00 1975 00:00:00 Hannah Corona - External Smoking Status Start Date Stop Date Source Never smoked tobacco Hannah Corona - External Medications Ordered Medication Name Filled Medication Name Start Date Stop Date Current Medication? Ordering Clinician Indication Dosage Frequency Signature (SIG) Comments Components Source Amphetamine -Dextroamph etamine 30 MG oral Capsule 24 Hour Sustained Release 2022-03 00:00: 00 Yes [id number] 30mg Take 1 capsule (30 mg total) by mouth every morning. Hannah Dooleya dylan Amphetamine -Dextroamph etamine 30 MG oral Capsule 24 Hour Sustained Release 2022-03 00:00: 00 03-08 00:00 :00 No [id number] 30mg Take 1 capsule (30 mg total) by mouth every morning. Hannah richardson Acetaminoph en (TYLENOL) 325 MG oral Tablet tablet 11-05 13:24: 49 11-05 00:00 :00 No 1{tbl} Take 1 tablet (325 mg total) by mouth as needed Hannah richardson Ondansetron (ZOFRAN) 4 MG oral TABLET DISPERSIBLE 11-05 13:24: 46 11-05 00:00 :00 No 1 tablet on the tongue and allow to dissolve Hannah richardson Amphetamine -Dextroamph etamine 30 MG oral Capsule 24 Hour Sustained Release 11-05 00:00: 00 Yes [id number] 30mg Take 1 capsule (30 mg total) by mouth every morning. Hannah richardson Amphetamine -Dextroamph etamine 30 MG oral Capsule 24 Hour Sustained Release 10-09 00:00: 00 11-05 00:00 :00 No [id number] 30mg Take 1 capsule (30 mg total) by mouth every morning Hannah richardson Ondansetron (ZOFRAN) 4 MG oral TABLET DISPERSIBLE 07-05 14:12: 56 Yes 1 tablet on the tongue and allow to dissolve Hannah richardson Acetaminoph en (TYLENOL) 325 MG oral Tablet tablet 07-05 14:12: 56 Yes 325mg Take 1 tablet (325 mg total) by mouth as needed Hannah richardson Amphetamine -Dextroamph etamine 30 MG oral Capsule 24 Hour Sustained Release 2023-0 4-10 00:00: 00 Yes [id number] 30mg Take 1 capsule (30 mg total) by mouth every morning Hannah richardson Acetaminoph en (TYLENOL) 325 MG oral Tablet tablet 2021-03 16:05: 26 Yes 1{tbl} Take 1 tablet by mouth as needed Hannah richardson Ondansetron (ZOFRAN) 4 MG oral TABLET DISPERSIBLE 2021-03 16:05: 14 Yes 1 tablet on the tongue and allow to dissolve Hannah richardson Tamsulosin HCl 0.4 MG oral Capsule 2021-03 16:05: 12 01-12 00:00 :00 No 1{capsu le} 1 capsule Hannah richardson Ciprofloxac in HCl 500 MG oral Tablet 2021-03 16:04: 24 01-12 00:00 :00 No 1{tbl} Take 1 tablet by mouth Hannah richardson Amphetamine -Dextroamph etamine 30 MG oral Capsule 24 Hour Sustained Release 2021-03 00:00: 00 Yes [id number] 30mg Take 1 capsule (30 mg total) by mouth every morning Hannah richardson Amphetamine -Dextroamph etamine 30 MG oral Capsule 24 Hour Sustained Release 9-23 00:00: 00 01-12 00:00 :00 No [id number] 30mg Take 1 capsule (30 mg total) by mouth every morning Hannah richardson Tamsulosin HCl 0.4 MG oral Capsule 05-10 16:04: 00 Yes 1{capsu le} 1 capsule Hannah Secarlos Ondansetron (ZOFRAN) 4 MG oral TABLET DISPERSIBLE 05-10 16:04: 00 Yes 1 tablet on the tongue and allow to dissolve Hannah Corona Ciprofloxac in HCl 500 MG oral Tablet 05-10 16:04: 00 Yes 1{tbl} Take 1 tablet by mouth Hannah Corona Acetaminoph en (TYLENOL) 325 MG oral Tablet tablet 05-10 16:04: 00 Yes 1{tbl} Take 1 tablet by mouth as needed Hannah Corona Amphetamine -Dextroamph etamine 30 MG oral Capsule 24 Hour Sustained Release 05-10 00:00: 00 Yes [id number] 30mg Take 1 capsule (30 mg total) by mouth every morning Hannah Secarlos Amphetamine -Dextroamph etamine 30 MG oral Capsule 24 Hour Sustained Release 04-07 00:00: 00 05-10 00:00 :00 No [id number] 30mg Take 1 capsule (30 mg total) by mouth every morning Hannah Corona Tamsulosin HCl 0.4 MG oral Capsule 2020-03 09:11: 25 Yes 1{capsu le} 1 capsule Hannah Corona Ondansetron (ZOFRAN) 4 MG oral TABLET DISPERSIBLE 2020-03 09:11: 25 Yes 1 tablet on the tongue and allow to dissolve Hannah Corona Ciprofloxac in HCl 500 MG oral Tablet 2020-03 09:11: 25 Yes 1{tbl} Take 1 tablet by mouth Hannah Corona Acetaminoph en (TYLENOL) 325 MG oral Tablet tablet 2020-03 09:11: 25 Yes 1{tbl} Take 1 tablet by mouth as needed Hannah Corona Amphetamine -Dextroamph etamine 30 MG oral Capsule 24 Hour Sustained Release 2020-03 00:00: 00 Yes [id number] 30mg Take 1 capsule (30 mg total) by mouth every morning Hannah Corona Cyclobenzap rine HCl 5 MG oral Tablet 2020-03 00:00: 00 Yes [id number] 9106 5mg Q8H Take 1 tablet (5 mg total) by mouth every 8 hours as needed for muscle spasms Hannah Corona Cyclobenzap rine HCl 5 MG oral Tablet 2020-03 00:00: 00 Yes [id number] 9106 5mg Q8H Take 1 tablet (5 mg total) by mouth every 8 hours as needed for muscle spasms Hannah Corona Cyclobenzap rine HCl 5 MG oral Tablet 2020-03 00:00: 00 01-12 00:00 :00 No [id number] 9106 5mg [id number] 3D Take 1 tablet (5 mg total) by mouth every 8 hours as needed for muscle spasms Hannah Corona - Externa l Amphetamine -Dextroamph etamine 30 MG oral Capsule 24 Hour Sustained Release 2020-03 014 00:00: 00 01-27 00:00 :00 No [id number] 30mg Take 1 capsule (30 mg total) by mouth every morning Hannah Corona Tamsulosin HCl Tamsulosin HCl Yes Ivana Apolinar 1 capsule [facility] Ondansetron Ondansetron Yes Ivana Foyil 1 tablet on the tongue and allow to dissolve [facility] Adderall XR Adderall XR Yes Ivana Foyil 1 capsule in the morning [facility] Acetaminoph en Acetaminoph en Yes Ivana Foyil 1 tablet as needed [facility] Ciprofloxac in HCl Ciprofloxac in HCl Yes Ivana Foyil 1 tablet [facility] Immunizations Ordered Immunization Name Filled Immunization Name Date Status Comments Source Tdap- (Boostrix, Adacel) 2022-11-05 00:00:00 Completed Hannah Corona - External Covid-19 Vaccine ([employer]), Mrna-lnp, Duy Protein, Pf, 30mcg/0.3ml,IM 2020-07-02 00:00:00 Completed Hannah Corona - External Covid-19 Vaccine ([employer]), Mrna-lnp, Duy Protein, Pf, 30mcg/0.3ml,IM 2020-07-02 00:00:00 Completed Hannah Corona - External Covid-19 Vaccine ([employer]), Mrna-lnp, Duy Protein, Pf, 30mcg/0.3ml,IM 2020-07-02 00:00:00 Completed Hannah Corona - External Covid-19 Vaccine ([employer]), Mrna-lnp, Duy Protein, Pf, 30mcg/0.3ml,IM 2020-07-02 00:00:00 Completed Hannah Corona Covid-19 Vaccine ([employer]), Mrna-lnp, Duy Protein, Pf, 30mcg/0.3ml,IM 2020-07-02 00:00:00 Completed Hannah Seybold Covid-19 Vaccine ([employer]izer), Mrna-lnp, Duy Protein, Pf, 30mcg/0.3ml,IM 2020-07-02 00:00:00 Completed Hannah Seybold Covid-19 Vaccine (Pfizer), Mrna-lnp, Duy Protein, Pf, 30mcg/0.3ml,IM 2020-07-02 00:00:00 Completed Hannah Seybold - External Covid-19 Vaccine (Pfizer), Mrna-lnp, Duy Protein, Pf, 30mcg/0.3ml,IM 2020-07-02 00:00:00 Completed Hannah Seybold - External Covid-19 Vaccine (Pfizer), Mrna-lnp, Duy Protein, Pf, 30mcg/0.3ml,IM 2020-07-02 00:00:00 Completed Hannah Seybold - External Covid-19 Vaccine (Pfizer), Mrna-lnp, Duy Protein, Pf, 30mcg/0.3ml,IM 2020-06-10 00:00:00 Completed Hannah Seybold - External Covid-19 Vaccine (Pfizer), Mrna-lnp, Duy Protein, Pf, 30mcg/0.3ml,IM 2020-06-10 00:00:00 Completed Hannah Seybold - External Covid-19 Vaccine (Pfizer), Mrna-lnp, Duy Protein, Pf, 30mcg/0.3ml,IM 2020-06-10 00:00:00 Completed Hannah Seybold - External Covid-19 Vaccine (Pfizer), Mrna-lnp, Duy Protein, Pf, 30mcg/0.3ml,IM 2020-06-10 00:00:00 Completed Hannah Seybold Covid-19 Vaccine (Pfizer), Mrna-lnp, Duy Protein, Pf, 30mcg/0.3ml,IM 2020-06-10 00:00:00 Completed Hannah Seybold Covid-19 Vaccine (Pfizer), Mrna-lnp, Duy Protein, Pf, 30mcg/0.3ml,IM 2020-06-10 00:00:00 Completed Hannah Seybold Covid-19 Vaccine (Pfizer), Mrna-lnp, Duy Protein, Pf, 30mcg/0.3ml,IM 2020-06-10 00:00:00 Completed Hannah Flanaganoz - External Covid-19 Vaccine ([employer]), Mrna-lnp, Duy Protein, Pf, 30mcg/0.3ml,IM 2020-06-10 00:00:00 Completed Hannah Malhotraybold - External Covid-19 Vaccine ([employer]), Mrna-lnp, Duy Protein, Pf, 30mcg/0.3ml,IM 2020-06-10 00:00:00 Completed Hannah ybold - External Covid-19 Vaccine ([employer]), Mrna-lnp, Duy Protein, Pf, 30mcg/0.3ml,IM Unknown Completed Hannah Flanaganol d - External Covid-19 Vaccine ([employer]), Mrna-lnp, Duy Protein, Pf, 30mcg/0.3ml,IM Unknown Completed Hannah Flanaganol d - External Covid-19 Vaccine ([employer]), Mrna-lnp, Duy Protein, Pf, 30mcg/0.3ml,IM Unknown Completed Hannahprincess Flanaganol d - External Covid-19 Vaccine ([employer]), Mrna-lnp, Duy Protein, Pf, 30mcg/0.3ml,IM Unknown Completed Hannahprincess [facility] - External Tdap- (Boostrix, Adacel) Unknown Completed Hannah Corona - External Vital Signs Vital Name Observation Time Observation Value Comments S ource Body temperature 2023-03-08 15:06:00 36.67 Shellie Hannah Corona - External Respiratory rate 2023-03-08 15:06:00 16 /min Hannah Corona - External Body height 2023-03-08 15:06:00 172.7 cm Tawana Corona - External Body weight 2023-03-08 15:06:00 75.467 kg Tawana Corona - External BMI 2023-03-08 15:06:00 25.30 kg/m2 Tawana Corona - External Oxygen saturation in Arterial blood by Pulse oximetry 2023-03-08 15:06:00 98 /min Hannah Oconnor ld - External Systolic blood pressure 2023-03-08 15:06:00 118 mm[Hg] Hannah Seybo ld - External Diastolic blood pressure 2023-03-08 15:06:00 68 mm[Hg] Hannah Seybo ld - External Heart rate 2023-03-08 15:06:00 88 /min Kelse y Seybold - External Systolic blood pressure 2022-11-05 18:20:00 114 mm[Hg] Hannah Seybo ld - External Diastolic blood pressure 2022-11-05 18:20:00 82 mm[Hg] Hannah Seybo ld - External Heart rate 2022-11-05 18:20:00 86 /min Kelse y Seybold - External Body temperature 2022-11-05 18:20:00 37 Shellie Hannah Seybold - External Respiratory rate 2022-11-05 18:20:00 15 /min Hannah Seybold - External Body height 2022-11-05 18:20:00 172.7 cm Tawana ey Seybold - External Body weight 2022-11-05 18:20:00 73.936 kg Tawana ey Seybold - External BMI 2022-11-05 18:20:00 24.78 kg/m2 Tawana ey Seybold - External Oxygen saturation in Arterial blood by Pulse oximetry 2022-11-05 18:20:00 99 /min Hannah Malhotraybo ld - External Systolic blood pressure 2022-07-05 18:44:00 106 mm[Hg] Hannah Seybo ld - External Diastolic blood pressure 2022-07-05 18:44:00 78 mm[Hg] Hannah Malhotraybo ld - External Heart rate 2022-07-05 18:44:00 75 /min Kelse y Seybold - External Body temperature 2022-07-05 18:44:00 36.56 Shellie Hannah Seybold - External Respiratory rate 2022-07-05 18:44:00 14 /min Hannah Seybold - External Body height 2022-07-05 18:44:00 172.7 cm Tawana ey Seybold - External Body weight 2022-07-05 18:44:00 74.844 kg Tawana ey Seybold - External BMI 2022-07-05 18:44:00 25.09 kg/m2 Tawana ey Seybold - External Oxygen saturation in Arterial blood by Pulse oximetry 2022-07-05 18:44:00 99 /min Hannah Seybo ld - External Systolic blood pressure 2022-01-12 21:01:00 112 mm[Hg] Hannah Seybo ld - External Diastolic blood pressure 2022-01-12 21:01:00 66 mm[Hg] Hannah Seybo ld - External Heart rate 2022-01-12 21:01:00 104 /min Kelse y Seybold - External Body temperature 2022-01-12 21:01:00 36 Shellie Hannah Seybold - External Respiratory rate 2022-01-12 21:01:00 16 /min Hannah Seybold - External Body height 2022-01-12 21:01:00 172.7 cm Tawana ey Seybold - External Body weight 2022-01-12 21:01:00 80.74 kg Tawana ey Seybold - External BMI 2022-01-12 21:01:00 27.06 kg/m2 Tawana ey Seybold - External Systolic blood pressure 2021-05-10 22:03:00 128 mm[Hg] Hannah Seybo ld Diastolic blood pressure 2021-05-10 22:03:00 84 mm[Hg] Hannah Seybo ld Heart rate 2021-05-10 22:03:00 89 /min Kelse y Seybold Body temperature 2021-05-10 22:03:00 36.61 Shellie Hannah Seybold Respiratory rate 2021-05-10 22:03:00 16 /min Hannah Seybold Body height 2021-05-10 22:03:00 152.4 cm Tawana ey Seybold Body weight 2021-05-10 22:03:00 82.101 kg Tawana ey Seybold BMI 2021-05-10 22:03:00 35.35 kg/m2 Tawana ey Seybold Systolic blood pressure 2021-01-27 15:11:00 130 mm[Hg] Hannah Seybo ld Diastolic blood pressure 2021-01-27 15:11:00 86 mm[Hg] Hannah Seybo ld Heart rate 2021-01-27 15:11:00 98 /min Kelse y Seybold Body temperature 2021-01-27 15:11:00 36.22 Shellie Hannah Seybold Respiratory rate 2021-01-27 15:11:00 14 /min Hannah Corona Body height 2021-01-27 15:11:00 152.4 cm Tawana Corona Body weight 2021-01-27 15:11:00 87.091 kg Tawana Corona BMI 2021-01-27 15:11:00 37.50 kg/m2 Tawana Corona Encounters Start Date/Time End Date/Time Encounter Type Admission Type Attending [facility] Care Department Encounter ID Source 2021-04-05 11:03:41 Outpatient Arreola Tariq [facility] [id number] [facility] 2023-05-17 00:00:00 2023-05-17 00:00:00 Outpatient [facility]ISHEK HIGH [id number] [facility]23-05-17 00:00:00 2023-05-17 00:00:00 Outpatient VICKI DEMPSEY [id number] [facility] 2023-04-15 00:00:00 2023-04-15 00:00:00 Outpatient ABHISHEK HIGH [id number] Hannah Malhotraoz 2023-03-08 09:00:00 2023-03-08 09:00:00 Outpatient VICKI DEMPSEY [id number] [facility] 2023-02-04 00:00:00 2023-02-04 00:00:00 Outpatient ABHISHEK HIGH [id number] Hannah oz 2023-01-23 00:00:00 2023-01-23 00:00:00 Outpatient ABHISHEK HIGH [id number] Hannah Cj 2022-12-17 00:00:00 2022-12-17 00:00:00 Outpatient ABHISHEK HIGH [id number] Hannah Cj 2022-11-16 09:25:00 2022-11-16 09:25:00 Outpatient LABKrissy NUÑEZ [id number] Hannah yboz 2022-11-15 00:00:00 2022-11-15 00:00:00 Outpatient PREZAS, ABHISHEK NUÑEZ HANNAH [id number] Hannah [facility] 2022-11-05 13:30:00 2022-11-05 13:30:00 Outpatient PREZAS, ABHISHEK NUÑEZ HANNAH [id number] [facility] 2022-10-09 00:00:00 2022-10-09 00:00:00 Outpatient PREZAS, ABHISHEK NUÑEZ HANNAH [id number] [facility] 2022-09-04 00:00:00 2022-09-04 00:00:00 Outpatient PREZAS, ABHISHEK NUÑEZ HANNAH [id number] Hannah [facility] 2022-07-25 00:00:00 2022-07-25 00:00:00 Outpatient PREZAS, ABHISHEK NUÑEZ HANNAH [id number] [facility] 2022-07-05 14:15:00 2022-07-05 14:15:00 Outpatient PREZAS, ABHISHEK HANNAH NUÑEZ [id number] [facility] 2022-06-18 00:00:00 2022-06-18 00:00:00 Outpatient PREZAS, ABHISHEK NUÑEZ HANNAH [id number] Hannah [facility] 2022-05-10 00:00:00 2022-05-10 00:00:00 Outpatient PREZAS, ABHISHEK NUÑEZ HANNAH [id number] [facility] 2022-04-10 00:00:00 2022-04-10 00:00:00 Outpatient PREZAS, ABHISHEK HANNAH NUÑEZ [id number] [facility] 2022-04-05 00:00:00 2022-04-05 00:00:00 Outpatient PREZAS, ABHISHEK HANNAH NUÑEZ [id number] Hannah [facility] 2022-02-21 00:00:00 2022-02-21 00:00:00 Outpatient PREZAS, ABHISHEK HANNAH NUÑEZ [id number] Hannah [facility] 2022-02-19 00:00:00 2022-02-19 00:00:00 Outpatient PREZAS, ABHISHEK HANNAH NUÑEZ [id number] [facility] 2022-01-12 16:00:00 2022-01-12 16:00:00 Outpatient PREZAS, ABHISHEK HANNAH HANNAH [id number] Hannah [facility] 2022-01-09 15:45:00 2022-01-09 15:45:00 Outpatient ABHISHEK HIGH HANNAH [id number] Hannah [facility] 2021-09-20 00:00:00 2021-09-20 00:00:00 Outpatient VICKI DEMPSEYPRINCESS NUÑEZ [id number] [facility] 2021-08-21 08:45:00 2021-08-21 09:00:00 Office Visit Vicki Dempsey [place] [id number] [facility] 2021-06-13 00:00:00 2021-06-13 00:00:00 Outpatient VICKI DEMPSEY HANNAH NUÑEZ [id number] [facility] 2021-05-10 16:00:00 2021-05-10 16:15:00 Office Visit Vicki Dempsey [place] [id number] [facility] 2021-04-07 00:00:00 2021-04-07 00:00:00 Outpatient VICKI DEMPSEY HANNAH NUÑEZ [id number] [facility] 2021-03-02 00:00:00 2021-03-02 00:00:00 Outpatient VICKI DEMPSEY HANNAH NUÑEZ [id number] [facility] 2021-01-27 09:00:00 2021-01-27 09:30:00 Office Visit Vicki Dempsey [place] [id number] [facility] 2021-01-25 00:00:00 2021-01-25 00:00:00 Outpatient ROSELYNVICKI BECKHAM HANNAH NUÑEZ [id number] [facility] 2020-10-10 15:00:00 2020-10-10 15:00:00 Outpatient VICKI DEMPSEY HANNAH [id number] Hannah Corona 2019-04-13 09:42:00 2019-04-13 09:42:00 [facility] [id number] [facility] 2019-04-07 10:30:00 2019-04-07 10:30:00 [facility] [id number] [facility] Notes Date/Time Note Provider Source 2023-03-08 09:08:44 [id number]/NN4P1EY+lq1Ed/2022T09:08:44 Chief ComplaintPatient presents withREFILLS-NURSE/MDPatient needs refill on medicationElvin Codyectronically signed by Anju Mantilla LVN at 03/08/2023 9:09 AM [id number]:09:42Nurse [id number] for patient [id number] NoteLNNARRATIVEFormatted C-CDA narrative [id number] L Seiler LVNHAZEL [facility]WK[facility]OR[facility] HOSPITALEPNuvance Healthcarlos [id number] [facility] [id number] Anju Mantilla [employer] 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
[2023-05-22 21:10] LABS: Absolute Basophils 0.1 K/uL (0-0.5); Absolute Eosinophils 0.3 K/uL (0-0.5); Absolute Lymphocytes (CBC) 2.1 K/uL (0.7-4.9); Absolute Monocytes 0.8 K/uL (0.1-1.3); Absolute Neutrophil 4.2 K/uL (1.8-8.0); Basophils % 1.3 % (0-1.3); Eosinophils % 4.1 % (0-4.4); Hematocrit 44.9 % (39.6-49.0); Hemoglobin 15.6 g/dL (13.6-17.9); Lymphocytes % 27.5 % (15.3-44.8); MCH 29.7 pg (27.0-35.0); MCHC 34.8 g/dL (32.0-36.0); MCV 85.5 fL (80-100); MPV 6.8 fL (7.6-11.3); Monocytes % 11.1 % (3.3-12.3); Platelets 296 thou/uL (152-406); RBC Red Blood Cell Count 5.26 M/uL (4.33-5.43); Red Cell Distribution Width 13.1 % (12.1-15.2)
[2023-05-22 21:15] LABS: PT Prothrombin Time 11.6 SECONDS (9.5-12.5); Protime INR 1.06
[2023-05-22 21:43] LABS: ALT/SGPT 26 U/L (16-61); AST/SGOT 15 U/L (15-37); Albumin 3.5 g/dL (3.4-5.0); Alkaline Phosphatase 97 U/L (45-117); Anion Gap 7.7 mEq/L (5.0-15.0); BUN Blood Urea Nitrogen 16 mg/dL (7-18); Bicarbonate 27 mEq/L (21-32); Bilirubin Total 0.2 mg/dL (0.2-1.0); Globulin 3.4 g/dL (2.3-3.5); Glomerular Filtration Rate 93 ml/min (=/>90); Glucose Level 146 mg/dL (74-106); Magnesium 2.4 mg/dL (1.6-2.4); NT PRO-BNP 8 pg/mL (<125); Potassium 3.7 mEq/L (3.5-5.1); Protein, Total 6.9 g/dL (6.4-8.2); Sodium Level 142 mEq/L (136-145); Troponin High Sensitivity 3.6 pg/mL (<58.9)
[2023-05-22 21:52] LABS: Bilirubin Direct < 0.1 mg/dL (0-0.2); Bilirubin Indirect, Calculated ND mg/dL (0.2-0.8)
--- NOTE | 2023-05-22 21:58 | RAD REPORT ---
EXAM DESCRIPTION: Falgunit Single View05/22/2023 9:10 pm CLINICAL HISTORY: CHEST PAIN COMPARISON: Chest Single View dated 04/10/2018; Chest Pa And Lat (2 Views) dated 07/22/2016; Chest Sin gle View dated 08/01/2015 TECHNIQUE: Portable AP view of the chest. FINDINGS: The lungs are clear. No pneumothorax or effusion. The cardiomediastinal contours are unre markable. IMPRESSION: No acute cardiopulmonary process.
--- NOTE | 2023-05-22 22:26 | EDPHYS ---
Physician Documentation [facility] Name: Shaquille Delgadillo Age: 47 yrs Sex: Male : 1975 Arrival Date: 05/22/2023 Time: 20:13 Bed DX4 Private MD: ED Physician Toni Sethi HPI: 05/21 20:26 This 47 yrs old Male presents to ER via Unassigned with complaints of Chest sp4 Pain > 30 y/o. 20:32 Patient is a very pleasant 47-year-old male with a history of ADHD, takes daily sp4 Adderall XR 30 mg, presents with acute onset of left-sided sharp chest pain on standing up, associated with no other symptoms. Left-sided chest pain was reported to travel down the left arm. Patient denied dizziness denies syncope denied vomiting denied diaphoresis. No prior history of coronary artery disease.. Historical: - Allergies: 20:31 Bactrim; jb4 20:31 PENICILLINS; jb4 - Home Meds: 20:31 Adderall XR 25 mg Oral cp24 1 cap once daily [Active]; jb4 - PMHx: 20:31 Anxiety; ADD/ADHD; Panic Attacks; tourretts; jb4 - Immunization history:: Adult Immunizations up to date. - Social history:: Smoking status: Patient denies any tobacco usage or history of. - Family history:: not pertinent. ROS: 20:32 Constitutional: Negative for fever, chills, and weight loss, positive chest pain sp4 20:32 All other systems are negative, Exam: 20:32 Constitutional: This is a well developed, well nourished patient who is awake, alert, sp4 and in no acute distress. Head/Face: Normocephalic, atraumatic. Eyes: Pupils equal round and reactive to light, extra-ocular motions intact. Lids and lashes normal. Conjunctiva and sclera are not injected. Cornea within normal limits. Periorbital areas with no swelling, redness, or edema. ENT: Nares patent. No nasal discharge, no septal abnormalities noted. Tympanic membranes are normal and external auditory canals are clear. Oropharynx with no redness, swelling, or masses, exudates, or evidence of obstruction, uvula midline. Mucous membranes moist. Neck: Trachea midline, no thyromegaly or masses palpated, and no cervical lymphadenopathy. Supple, full range of motion without nuchal rigidity, or vertebral point tenderness. Chest/axilla: Normal chest wall appearance and motion. Nontender with no deformity. No lesions are appreciated. Cardiovascular: Regular rate and rhythm with a normal S1 and S2. No gallops, murmurs, or rubs. Normal PMI, no JVD. No pulse deficits. Respiratory: Lungs have equal breath sounds bilaterally, clear to auscultation and percussion. No rales, rhonchi or wheezes noted. No increased work of breathing, no retractions or nasal flaring. Abdomen/GI: Soft, with normal bowel sounds. No distension or tympany. No guarding or rebound. No evidence of tenderness throughout. Back: No spinal tenderness. No costovertebral tenderness. Skin: Warm, dry with normal turgor. Normal color with no rashes, no lesions, and no evidence of cellulitis. MS/ Extremity: Pulses equal, no cyanosis. Neurovascular intact. Full, normal range of motion. Neuro: Awake and alert, GCS 15, oriented to person, place, time, and situation. Cranial nerves II-XII grossly intact. Motor strength 5/5 in all extremities. Sensory grossly intact. Psych: Awake, alert, with orientation to person, place and time. Behavior, mood, and affect are within normal limits 21:31 ECG was reviewed by the Attending Physician. EKG at 195 reveals normal sinus rhythm. sp4 Otherwise normal EKG rate 96 Vital Signs: 20:28 BP 145 / 96; Pulse 101; Resp 16; Temp 98.3(TE); Pulse Ox 97% on R/A; Weight 74.84 kg jb4 (R); Height 5 ft. 8 in. (R); Pain 0/10; 20:28 Body Mass Index 25.09 (74.84 kg, 172.72 cm) jb4 20:28 Pain Scale: Adult jb4 MDM: 21:32 Patient medically screened. sp4 22:22 Differential diagnosis: acute pericarditis, anxiety, coronary artery disease chest wall sp4 pain. HEART Score: History: Slightly Suspicious (0), ECG: Normal (0), Age: < or = 45 years (0), Risk Factors: No Risk Factors Known (0), Troponin: < or = 1 x Normal Limit (0), Total Score = 0. The patient was not given aspirin in the Emergency Department. Administered by EMS. Data reviewed: vital signs, nurses notes, EMS record, old medical records, lab test result(s), EKG, radiologic studies, plain films. ED course: EXAM DESCRIPTION: Dhaval Single View05/22/2023 9:10 pm CLINICAL HISTORY: CHEST PAIN COMPARISON: Chest Single View dated 04/10/2018; Chest Pa And Lat (2 Views) dated 07/22/2016; Chest Single View dated 08/01/2015 TECHNIQUE: Portable AP view of the chest. FINDINGS: The lungs are clear. No pneumothorax or effusion. The cardiomediastinal contours are unremarkable. IMPRESSION: No acute cardiopulmonary process. . 22:24 ED course: Chest pain is not typical for CAD, workup is negative. Second troponin is sp4 not warranted secondary to the lack of risk factors. Patient likely had anxiety attack. This is associated with his current socioeconomic troubles. 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 . 05/21 20:32 Order name: Basic Metabolic Panel; Complete Time: 22:19 sp4 05/21 20:32 Order name: CBC with Diff; Complete Time: 22:19 sp4 05/21 20:32 Order name: LFT's; Complete Time: 22:19 sp4 05/21 20:32 Order name: Magnesium; Complete Time: 22:19 sp4 05/21 20:32 Order name: NT PRO-BNP; Complete Time: 22:19 sp4 05/21 20:32 Order name: PT-INR; Complete Time: 22:19 sp4 05/21 20:32 Order name: Troponin HS; Complete Time: 22:19 sp4 05/21 20:32 Order name: XRAY Chest (1 view); Complete Time: 22:19 sp4 05/21 20:32 Order name: EKG; Complete Time: 20:32 sp4 05/21 20:32 Order name: Cardiac monitoring; Complete Time: 21:23 sp4 05/21 20:32 Order name: EKG - Nurse/Tech; Complete Time: 21:23 sp4 05/21 20:32 Order name: IV Saline Lock; Complete Time: 20:48 sp4 05/21 20:32 Order name: Labs collected and sent; Complete Time: 20:48 sp4 05/21 20:32 Order name: O2 Per Protocol; Complete Time: 20:48 sp4 05/21 20:32 Order name: O2 Sat Monitoring; Complete Time: 20:48 sp4 EC:31 Rate is 96 beats/min. Rhythm is regular, Normal Sinus Rhythm. QRS [place] is Normal. HI sp4 interval is normal. QRS interval is normal. QT interval is normal. No Q waves. T waves are Normal. No ST changes noted. Clinical impression: Normal ECG. Interpreted by me. Reviewed by me. Administered Medications: No medications were administered Disposition Summary: 05/22/23 22:26 Discharge Ordered Problem: new sp4 Symptoms: have improved sp4 Condition: Stable sp4 Diagnosis - Chest pain, unspecified sp4 - Noncardiac chest pain, elevated blood sugar sp4 Followup: sp4 - With: Private Physician - When: 10 - 14 days - Reason: Recheck today's complaints Discharge Instructions: - Discharge Summary Sheet sp4 - Nonspecific Chest Pain, Adult, [id number] sp4 Forms: - Patient Portal Instructions sp4 Signatures: Dispatcher [employer] John Antoine RN RN jb4 Toni Sethi MD MD sp4
--- NOTE | 2023-05-22 22:26 | ER ---
Nurse's Notes [facility] Name: Shaquille Delgadillo Age: 47 yrs Sex: Male : 1975 Arrival Date: 05/22/2023 Time: 20:13 Bed DX4 Private MD: Diagnosis: Chest pain, unspecified;Noncardiac chest pain, elevated blood sugar Presentation: 05/21 20:28 Chief complaint: EMS states: Pt reports chest pain after standing up. He was doing jb4 something for his kids and after standing he reported a sharp chest pain rated 4/10 that turned into a dull pain. Upon arrival to the ED pain decreased to 2/10 with numbness and tingling to the left arm. Pt was given 324 ASA prior to arrival to ED. 18g IV to the LAC. Pt currently reports all symptoms have resolved. Coronavirus screen: At this time, the client does not indicate any symptoms associated with coronavirus-19. Ebola Screen: No symptoms or risks identified at this time. Initial Sepsis Screen: Does the patient meet any 2 criteria? No. Patient's initial sepsis screen is negative. Does the patient have a suspected source of infection? No. Patient's initial sepsis screen is negative. Risk Assessment: Do you want to hurt yourself or someone else? Patient reports no desire to harm self or others. Onset of symptoms was May 22, 2023. Transition of care: patient was not received from another setting of care. 20:28 Method Of Arrival: EMS: [facility] jb4 20:28 Acuity: RAYNA 3 jb4 Triage Assessment: 20:31 General: Appears in no apparent distress. comfortable, Behavior is calm, cooperative, jb4 appropriate for age. Pain: Denies pain. Pain at worst was 4 out of 10 on a pain scale. EENT: No signs and/or symptoms were reported regarding the EENT system. Neuro: Level of Consciousness is awake, alert, obeys commands, Oriented to person, place, time, situation. Cardiovascular: Patient's skin is warm and dry. Respiratory: Airway is patent Respiratory effort is even, unlabored, Respiratory pattern is regular, symmetrical. GI: No signs and/or symptoms were reported involving the gastrointestinal system. : No signs and/or symptoms were reported regarding the genitourinary system. Derm: Skin is intact, Skin is pink, warm \T\ dry. Musculoskeletal: Circulation, motion, and sensation intact. Range of motion: intact in all extremities. Historical: - Allergies: 20:31 Bactrim; jb4 20:31 PENICILLINS; jb4 - Home Meds: 20:31 Adderall XR 25 mg Oral cp24 1 cap once daily [Active]; jb4 - PMHx: 20:31 Anxiety; ADD/ADHD; Panic Attacks; tourretts; jb4 - Immunization history:: Adult Immunizations up to date. - Social history:: Smoking status: Patient denies any tobacco usage or history of. - Family history:: not pertinent. Screenin:32 [facility] ED Fall Risk Assessment (Adult) History of falling in the last 3 months, jb4 including since admission No falls in past 3 months (0 pts) Confusion or Disorientation No (0 pts) Intoxicated or Sedated No (0 pts) Impaired Gait No (0 pts) Mobility Assist Device Used No (0 pt) Altered Elimination No (0 pt) Score/Fall Risk Level 0 - 2 = Low Risk Oriented to surroundings, Maintained a safe environment. Abuse screen: Denies threats or abuse. Nutritional screening: No deficits noted. Tuberculosis screening: No symptoms or risk factors identified. Assessment: 20:32 Reassessment: See triage note. jb4 21:30 Reassessment: Patient appears in no apparent distress at this time. Patient and/or jb4 family updated on plan of care and expected duration. Pain level reassessed. Patient is alert, oriented x 3, equal unlabored respirations, skin warm/dry/pink. 22:30 Reassessment: Patient appears in no apparent distress at this time. Patient and/or jb4 family updated on plan of care and expected duration. Pain level reassessed. Patient is alert, oriented x 3, equal unlabored respirations, skin warm/dry/pink. Vital Signs: 20:28 BP 145 / 96; Pulse 101; Resp 16; Temp 98.3(TE); Pulse Ox 97% on R/A; Weight 74.84 kg jb4 (R); Height 5 ft. 8 in. (R); Pain 0/10; 20:28 Body Mass Index 25.09 (74.84 kg, 172.72 cm) jb4 20:28 Pain Scale: Adult [facility] ED Course: 20:20 Patient arrived in ED. jb4 20:26 Potepalov, Toni, MD is Attending Physician. sp4 20:28 John Turner, RN is Primary Nurse. jb4 20:31 Triage completed. jb4 20:31 Arm band placed on right wrist. jb4 20:32 Patient has correct armband on for positive identification. Provided Education on: jb4 Informed of expected test and wait time.. Client placed on continuous cardiac and pulse oximetry monitoring. NIBP monitoring applied. 20:32 Patient maintains SpO2 saturation greater than 95% on room air. jb4 21:12 XRAY Chest (1 view) In Process Unspecified. EDMS 22:30 No provider procedures requiring assistance completed. jb4 22:35 IV discontinued, intact, bleeding controlled, No redness/swelling at site. Pressure ty dressing applied. Administered Medications: No medications were administered Medication: 20:32 VIS not applicable for this client. jb4 Outcome: 22:26 Discharge ordered by . sp4 22:30 Discharged to home ambulatory, jb4 22:30 Condition: stable 22:30 Discharge instructions given to patient, Instructed on discharge instructions, follow up and referral plans. Demonstrated understanding of instructions, follow-up care, 22:40 Patient left the ED. jb4 Signatures: Dispatcher [employer] EDNM John Turner RN RN jb4 Toni Sethi MD MD sp4 Jsutice Burnette ty Corrections: (The following items were deleted from the chart) 20:33 20:32 [facility] ED Fall Risk Assessment (Adult) History of falling in the last 3 months, jb4 including since admission No falls in past 3 months (0 pts) jb4
[2023-05-22 23:07] VITALS: BP 145/96; TEMP 98.3; O2SAT 97
== END ==
LOC: ER 20:13
DX: R07.89 Other chest pain (principal); R73.9 Hyperglycemia, unspecified; F90.9 Attention-deficit hyperactivity disorder, unspecified type; Z88.0 Allergy status to penicillin; Z88.1 Allergy status to other antibiotic agents
CPT/HCPCS: 36415; 71045; 80048; 80076; 83735; 83880; 84484; 85025; 85610; 93005

== ENCOUNTER 2023-10-20 09:32 | Emergency (ER) | payer OTHER, SELFPAY ==
--- OUTSIDE RECORDS SUMMARY | 2023-10-20 09:35 | XMS REPORT | Continuity of Care Document ---
Author Name Unknown Address [address] [facility] [address] [place] [address] [facility] Address [address] [facility] [address] [place] [address] Care Team Providers Care Insole Filler Name Role Phone Roselyn LEYVA, Vicki Hensley Primary Care Physician Tariq Arreola Attending Clinician Unavailable ABHISHEK HIGH Attending Clinician Unavailable VICKI DEMPSEY Attending Clinician Unaary ilable [id number] Attending Clinician Unavailable Vicki Dempsey MD Attending Clinician [phone] Payers Payer Name Policy Type Policy Number Effective Date Expirati on Date Source [facility]ELISAN[facility]O [facility] [place] [address] ON 9 [id number] 2023 00:00:00 [facility] 2 [id number] 2021 00:00:00 [facility] 2 [id number] 2020 00:00:00 Problems Condition Name Condition Details Condition Category Status Onset Date Resolution Date Last Treatment Date Treating Clinician Comments Source Well adult exam Well adult exam Disease Active 11-05 00:00: 00 Hannah richardson Hiatal hernia with GERD Hiatal hernia with GERD Disease Active 11-05 00:00: 00 Hannah richardson Acute pain of right shoulder Acute pain of right shoulder Disease Active 2021-03 00:00: 00 Hannah richardson Attention deficit hyperactiv ity disorder (ADHD) Attention deficit hyperactiv ity disorder (ADHD) Disease Active 10-10 00:00: 00 Hannah Dooleya dylan Tourette's - Unchanged Tourette's - Unchanged Disease Active 10-10 00:00: 00 Hannah Dooleya dylan Kidney stone Kidney stone Problem Active [facility] Hydronephr osis with urinary obstructio n due to renal calculus Hydronephr osis with urinary obstructio n due to renal calculus Problem Active [facility] Allergies, Adverse Reactions, Alerts Allergy Name Allergy Type Status Severity Reaction(s) Onset Date Inactive Date Treating Clinician Comments Source Na Benzoate -Sulfame thoxazol e-Trimet hoprim Propensi ty to adverse reaction s Active Nausea and Vomiting 04-07 00:00: 00 Other reaction( s): Unknown Hannah Dooleya dylan Penicill ins Propensi ty to adverse reaction s Active Hives 2 00:00: 00 Hannah Dooleya l Trimetho prim Propensi ty to adverse reaction s Active Hives 2 00:00: 00 Hannah Dooleya dylan Bactrim Adverse Reaction Active Info Not Available [facility] Social History Social Habit Start Date Stop Date Quantity Comments Source Exposure to SARS-CoV-2 (event) Not sure Hannah gonzalez Gender identity Tawana Corona - External Sexual orientation José Luis Corona - External Alcoholic beverage intake 2023-07-09 00:00:00 2023-07-09 00:00:00 Ex-drinker (finding) Hannah Corona - External Alcohol intake 2023-03-08 00:00:00 2023-03-08 00:00:00 Ex-drinker (finding) Hannah Corona - External History of Social function 2022-11-26 00:00:00 2022-11-26 00:00:00 Hannah Corona - External Tobacco use and exposure 2022-11-05 00:00:00 2022-11-05 00:00:00 Smokeless tobacco non-user Hannah Seybold - External Education - What is the highest level of school you have completed or the highest degree you have received? 2022-11-05 00:00:00 2022-11-05 00:00:00 Bachelor's degree (e.g., BA, AB, BS) Hannah Fitch Sex assigned at 1975 00:00:00 1975 00:00:00 Hannah Fitch Smoking Status Start Date Stop Date Source Never smoked tobacco Hannah Fitch Medications Ordered Medication Name Filled Medication Name Start Date Stop Date Current Medication? Ordering Clinician Indication Dosage Frequency Signature (SIG) Comments Components Source Amphetamine -Dextroamph etamine 30 MG oral Capsule 24 Hour Sustained Release 07-08 00:00: 00 Yes [id number] 30mg Take 1 capsule (30 mg total) by mouth every morning. Hannah richardson Amphetamine -Dextroamph etamine 30 MG oral Capsule 24 Hour Sustained Release 05-16 00:00: 00 07-08 00:00 :00 No [id number] 30mg Take 1 capsule (30 mg total) by mouth every morning. Hannah richardson Amphetamine -Dextroamph etamine 30 MG oral Capsule 24 Hour Sustained Release 2022-03 00:00: 00 Yes [id number] 30mg Take 1 capsule (30 mg total) by mouth every morning. Hannah richardson Amphetamine -Dextroamph etamine 30 MG oral Capsule 24 Hour Sustained Release 2022-03 00:00: 00 03-08 00:00 :00 No [id number] 30mg Take 1 capsule (30 mg total) [...] Hour Sustained Release 11-05 00:00: 00 Yes [id number] 30mg Take 1 capsule (30 mg total) by mouth every morning. Hannah richardson Amphetamine -Dextroamph etamine 30 MG oral Capsule 24 Hour Sustained Release 10-09 00:00: 00 11-05 00:00 :00 No [id number] 30mg Take 1 capsule (30 mg total) [...] MG oral Capsule 24 Hour Sustained Release 06-18 00:00: 00 Yes [id number] 30mg Take 1 capsule (30 mg total) [...] Hour Sustained Release 2021-03 00:00: 00 Yes [id number] 30mg Take 1 capsule (30 mg total) by mouth every morning Hannah Malhotraelaineoz Jiménez dylan Amphetamine -Dextroamph etamine 30 MG oral Capsule 24 Hour Sustained Release 2021-0 9-23 00:00: 00 01-12 00:00 :00 No [id number] 30mg Take 1 capsule (30 mg total) by mouth every morning Hannah Malhotracarlos Dooleykristin dylan Tamsulosin HCl 0.4 MG oral Capsule 0 -02 16:04: 00 Yes 1{capsu le} 1 capsule Hannah Corona Ondansetron (ZOFRAN) 4 MG oral TABLET DISPERSIBLE 05-10 16:04: 00 Yes 1 tablet on the tongue and allow to dissolve Hannah Corona Ciprofloxac in HCl 500 MG oral Tablet 05-10 16:04: 00 Yes 1{tbl} Take 1 tablet by mouth Hannah Malhotraelaineoz Acetaminoph en (TYLENOL) 325 MG oral Tablet tablet 05-10 16:04: 00 Yes 1{tbl} Take 1 tablet by mouth as needed Hannah Secarlos Amphetamine -Dextroamph etamine 30 MG oral Capsule 24 Hour Sustained Release 0 05-10 00:00: 00 Yes [id number] 30mg Take 1 capsule (30 mg total) by mouth every morning Hannah Corona Amphetamine -Dextroamph etamine 30 MG oral Capsule 24 Hour Sustained Release 0 1-28 00:00: 00 05-10 00:00 :00 No [id number] 30mg Take 1 capsule (30 mg total) by mouth every morning Hannah Malhotraelaineoz Tamsulosin HCl 0.4 MG oral Capsule 2020-03 09:11: 25 Yes 1{capsu le} 1 capsule Hannah Corona Ondansetron (ZOFRAN) 4 MG oral TABLET DISPERSIBLE 2020-03 09:11: 25 Yes 1 tablet on the tongue and allow to dissolve Hannah Corona Ciprofloxac in HCl 500 MG oral Tablet 2020-03 09:11: 25 Yes 1{tbl} Take 1 tablet by mouth Hannah Malhotraelaineoz Acetaminoph en (TYLENOL) 325 MG oral Tablet tablet 2020-03 09:11: 25 Yes 1{tbl} Take 1 tablet by mouth as needed Hannah Corona Amphetamine -Dextroamph etamine 30 MG oral Capsule 24 Hour Sustained Release 2020-03 00:00: 00 Yes [id number] 30mg Take 1 capsule (30 mg total) by mouth every morning Hannah Corona Cyclobenzap rine HCl 5 MG oral Tablet 2020-03 00:00: 00 01-12 00:00 :00 No [id number] 9106 5mg [id number] 3D Take 1 tablet (5 mg total) by mouth every 8 hours as needed for muscle spasms Hannah Corona - Externa l Amphetamine -Dextroamph etamine 30 MG oral Capsule 24 Hour Sustained Release 2020-03 00:00: 00 01-27 00:00 :00 No [id number] 30mg Take 1 capsule (30 mg total) by mouth every morning Hannah Corona Tamsulosin HCl Tamsulosin HCl Yes Ivana Apolinar 1 capsule [facility] Ondansetron Ondansetron Yes Ivana Apolinar 1 tablet on the tongue and allow to dissolve [facility] Adderall XR Adderall XR Yes Ivana Apolinar 1 capsule in the morning [facility] Acetaminoph en Acetaminoph en Yes Ivana Apolinar 1 tablet as needed [facility] Ciprofloxac in HCl Ciprofloxac in HCl Yes Ivana Fanwood 1 tablet [facility] Immunizations Ordered Immunization Name Filled Immunization Name Date Status Comments Source Tdap- (Boostrix, Adacel) 2022-11-05 00:00:00 Completed Hannah Machado External Covid-19 Vaccine (Kampyle), Mrna-lnp, Duy Protein, Pf, 30mcg/0.3ml,IM 2020-07-02 00:00:00 Completed Hannah Corona - External Covid-19 Vaccine (Kampyle), Mrna-lnp, Dyu Protein, Pf, 30mcg/0.3ml,IM 2020-07-02 00:00:00 Completed Hannah [...] Vaccine (Pfizer), Mrna-lnp, Duy Protein, Pf, 30mcg/0.3ml,IM Unknown Completed Hannah Seybol d - External Covid-19 Vaccine (Pfizer), Mrna-lnp, Duy Protein, Pf, 30mcg/0.3ml,IM Unknown Completed Hannah Seybol d - External Covid-19 Vaccine (Pfizer), Mrna-lnp, Duy Protein, Pf, 30mcg/0.3ml,IM Unknown Completed Hannah Seybol d - External Covid-19 Vaccine (Pfizer), Mrna-lnp, Duy Protein, Pf, 30mcg/0.3ml,IM Unknown Completed Hannah Seol d - External Tdap- (Boostrix, Adacel) Unknown Completed Hannah Seybold - External Covid-19 Vaccine (Pfizer), Mrna-lnp, Duy Protein, Pf, 30mcg/0.3ml,IM Unknown Completed Hannah Seybol d - External Covid-19 Vaccine (Pfizer), Mrna-lnp, Duy Protein, Pf, 30mcg/0.3ml,IM Unknown Completed Hannah Seybol d - External Covid-19 Vaccine (Kampyle), Mrna-lnp, Duy Protein, Pf, 30mcg/0.3ml,IM Unknown Completed Hannah Malhotraybol d - External Covid-19 Vaccine (Pfizer), Mrna-lnp, Duy Protein, Pf, 30mcg/0.3ml,IM Unknown Completed Hannah Seybol d - External Tdap- (Boostrix, Adacel) Unknown Completed Hannah Seybold - External Vital Signs Vital Name Observation Time Observation Value Comments S ource Systolic blood pressure 2023-07-09 13:03:00 114 mm[Hg] Hannah Seybo ld - External Diastolic blood pressure 2023-07-09 13:03:00 72 mm[Hg] Hannah Malhotraybo ld - External Heart rate 2023-07-09 13:03:00 77 /min Leonidse y Seybold - External Body temperature 2023-07-09 13:03:00 36.78 Shellie Hannah Seybold - External Respiratory rate 2023-07-09 13:03:00 18 /min Hannah Seybold - External Body height 2023-07-09 13:03:00 172.7 cm Tawana ey Seybold - External Body weight 2023-07-09 13:03:00 80.4 kg Tawana ey Seybold - External BMI 2023-07-09 13:03:00 26.95 kg/m2 Tawana ey Seybold - External Oxygen saturation in Arterial blood by Pulse oximetry 2023-07-09 13:03:00 98 /min Hannah Malhotraybo ld - External Systolic blood pressure 2023-03-08 15:06:00 118 mm[Hg] Hannah Seybo ld - External Diastolic blood pressure 2023-03-08 15:06:00 68 mm[Hg] Hannah Malhotraybo ld - External Heart rate 2023-03-08 15:06:00 88 /min Kelse y Seybold - External Body temperature 2023-03-08 15:06:00 36.67 Shellie Hannah Seybold - External Respiratory rate 2023-03-08 15:06:00 16 /min Hannah Seybold - External Body height 2023-03-08 15:06:00 172.7 cm Tawana ey Seybold - External Body weight 2023-03-08 15:06:00 75.467 kg Tawana ey Seybold - External BMI 2023-03-08 15:06:00 25.30 kg/m2 Tawana ey Seybold - External Oxygen saturation in Arterial blood by Pulse oximetry 2023-03-08 15:06:00 98 /min Hannah Seybo ld - External Systolic blood pressure 2022-11-05 18:20:00 [...] Pulse oximetry 2022-11-05 18:20:00 99 /min Hannah Seybo ld - External Systolic blood pressure 2022-07-05 18:44:00 106 mm[Hg] Hannah Seybo ld - External Diastolic blood pressure 2022-07-05 18:44:00 78 mm[Hg] Hannah Seybo ld - External Heart rate 2022-07-05 18:44:00 [...] Body temperature 2021-01-27 15:11:00 36.22 Shellie Hannah Corona Respiratory rate 2021-01-27 15:11:00 14 /min Hannah Corona Body height 2021-01-27 15:11:00 152.4 cm Tawana Corona Body weight 2021-01-27 15:11:00 87.091 kg Tawana Corona BMI 2021-01-27 15:11:00 37.50 kg/m2 Tawana Corona Encounters Start Date/Time End Date/Time Encounter Type Admission Type Attending [facility] Care Department Encounter ID Source 2021-04-05 11:03:41 Outpatient Tariq Arreola [facility] [id number] [facility] 2023-10-09 08:00:00 2023-10-09 08:00:00 Outpatient ABHISHEK HIGH [id number] Hannah Seybold 2023-09-25 00:00:00 2023-09-25 00:00:00 [facility] [id number] [facility]23-08-16 00:00:00 2023-08-16 00:00:00 Outpatient AB[facility]ISHEK HIGH [id number] [facility] 2023-08-15 00:00:00 2023-08-15 00:00:00 Outpatient VICKI DEMPSEY [id number] Hannah Seybold 2023-08-14 00:00:00 2023-08-14 00:00:00 Outpatient ABHISHEK HIGH [id number] Hannah Seybold 2023-07-09 08:00:00 2023-07-09 08:00:00 Outpatient VICKI DEMPSEY [id number] Hannah Seybold 2023-05-17 00:00:00 2023-05-17 00:00:00 Outpatient ABHISHEK HIGH [id number] Hannah Seybold 2023-05-17 00:00:00 2023-05-17 00:00:00 Outpatient [facility]ICK[facility] DEMPSEY [id number] [facility] 2023-04-15 00:00:00 2023-04-15 00:00:00 Outpatient PREZAS, ABHISHEK HANNAH NUÑEZ [id number] Hannah Mal[facility] 2023-03-08 09:00:00 2023-03-08 09:00:00 Outpatient ROSELYNVICKI HANNAH NUÑEZ [id number] [facility] 2023-02-04 00:00:00 2023-02-04 00:00:00 Outpatient PREZAS, ABHISHEK HANNAH NUÑEZ [id number] [facility] 2023-01-23 00:00:00 2023-01-23 00:00:00 Outpatient PREZAS, ABHISHEK NUÑEZ [id number] [facility] 2022-12-17 00:00:00 2022-12-17 00:00:00 Outpatient PREZAS, ABHISHEKEDMAR NUÑEZ [id number] [facility] 2022-11-16 09:25:00 2022-11-16 09:25:00 Outpatient LABKrissy HANNAH NUÑEZ [id number] [facility] 2022-11-15 00:00:00 2022-11-15 00:00:00 Outpatient PREZAS, ABHISHEK HANNAH NUÑEZ [id number] [facility] 2022-11-05 13:30:00 2022-11-05 13:30:00 Outpatient PREZAS, ABHISHEK NUÑEZ [id number] [facility] 2022-10-09 00:00:00 2022-10-09 00:00:00 Outpatient PREZAS, ABHISHEK HANNAH NUÑEZ [id number] [facility] 2022-09-04 00:00:00 2022-09-04 00:00:00 Outpatient PREZAS, ABHISHEK NUÑEZ [id number] [facility] 2022-07-25 00:00:00 2022-07-25 00:00:00 Outpatient PREZAS, ABHISHEK NUÑEZ [id number] [facility] 2022-07-05 14:15:00 2022-07-05 14:15:00 Outpatient PREZAS, ABHISHEK NUÑEZ [id number] [facility] 2022-06-18 00:00:00 2022-06-18 00:00:00 Outpatient PREZAS, ABHISHEK NUÑEZ [id number] [facility] 2022-05-10 00:00:00 2022-05-10 00:00:00 Outpatient PREZAS, ABHISHEK NUÑEZ [id number] [facility] 2022-04-10 00:00:00 2022-04-10 00:00:00 Outpatient PREZAS, ABHISHEK NUÑEZ [id number] [facility] 2022-04-05 00:00:00 2022-04-05 00:00:00 Outpatient PREZAS, ABHISHEK NUÑEZ HANNAH [id number] [facility] 2022-02-21 00:00:00 2022-02-21 00:00:00 Outpatient PREZAS, ABHISHEK NUÑEZ [facility]ANNAH [id number] [facility]:00:00 2022-02-19 00:00:00 Outpatient PREZAS, ABHISHEK NUÑEZ [id number] [facility] 2022-01-12 16:00:00 2022-01-12 16:00:00 Outpatient PREZAS, ABHISHEK NUÑEZ HANNAH [id number] [facility] 2022-01-09 15:45:00 2022-01-09 15:45:00 Outpatient PREZAS, ABHISHEK NUÑEZ HANNAH [id number] [facility] 2021-09-20 00:00:00 2021-09-20 00:00:00 Outpatient VICKI DEMPSEY [id number] [facility] 2021-08-21 08:45:00 2021-08-21 09:00:00 Office Visit Vicki Dempsey [place] [id number] [facility] 2021-06-13 00:00:00 2021-06-13 00:00:00 Outpatient VICKI DEMPSEY [id number] [facility] 2021-05-10 16:00:00 2021-05-10 16:15:00 Office Visit Vicki Dempsey [id number] [facility] 2021-04-07 00:00:00 2021-04-07 00:00:00 Outpatient VICKI DEMPSEY HANNAH NUÑEZ [id number] [facility] 2021-03-02 00:00:00 2021-03-02 00:00:00 Outpatient ROSELYNNIKOLAY BECKHAMAYLA NUÑEZ [id number] [facility] 2021-01-27 09:00:00 2021-01-27 09:30:00 Office Visit Vicki Dempsey [id number] [facility] 2021-01-25 00:00:00 2021-01-25 00:00:00 Outpatient NIKOLAY DEMPSEYAYLA NUÑEZ [id number] [facility] 2020-10-10 15:00:00 2020-10-10 15:00:00 Outpatient NIKOLAY DEMPSEYAYLA NUÑEZ [id number] [facility] 2019-04-13 09:42:00 2019-04-13 09:42:00 [facility] [id number] [facility] 2019-04-07 10:30:00 2019-04-07 10:30:00 [facility] [id number] [facility] Notes Date/Time Note Provider Source 2023-07-09 08:08:26 Chief Complaint Patient presents with Follow-up Needs refill on Adderall Anju Mantilla LVN [facility] 2023-03-08 09:08:44 Chief Complaint Patient presents with REFILLS-NURSE/MD Patient needs refill on medication 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
--- NOTE | 2023-10-20 10:05 | RAD REPORT ---
EXAM DESCRIPTION: CT - Head Brain Wo Cont - 10/20/2023 9:52 am CLINICAL HISTORY: facial droop COMPARISON: No comparisons TECHNIQUE: All CT scans are performed using dose optimization technique as appropriate and may inclu de automated exposure control or mA/KV adjustment according to patient size. FINDINGS: No acute intracranial hemorrhage. Ventriculomegaly is present involving the lateral and th ird ventricle.No areas of brain edema or evidence of midline shift. No acute large vascular territory infarcts. The paranasal sinuses and mastoids are clear. The calvarium is intact. IMPRESSION: Ventriculomegaly involving the lateral and third ventricle could indicate normal pressur e hydrocephalus. If the patient has any recent outside priors, this would be helpful for comparison. No acute intracranial hemorrhage or acute large vascular territory infarct.
[2023-10-20 10:11] LABS: PT Prothrombin Time 11.7 SECONDS (9.4-12.5); PTT, Activated Partial Thromb 35.6 SECONDS (24.3-36.9); Protime INR 1.05
[2023-10-20 10:13] LABS: Absolute Basophils 0.1 K/uL (0-0.5); Absolute Eosinophils 0.2 K/uL (0-0.5); Absolute Lymphocytes (CBC) 1.7 K/uL (0.7-4.9); Absolute Monocytes 0.6 K/uL (0.1-1.3); Basophils % 0.8 % (0-1.3); Eosinophils % 3.1 % (0-4.4); Hematocrit 46.6 % (39.6-49.0); Hemoglobin 15.6 g/dL (13.6-17.9); Lymphocytes % 26.5 % (15.3-44.8); MCH 28.8 pg (27.0-35.0); MCHC 33.4 g/dL (32.0-36.0); MCV 86.1 fL (80-100); MPV 7.2 fL (7.6-11.3); Monocytes % 8.6 % (3.3-12.3); Platelets 294 thou/uL (152-406); RBC Red Blood Cell Count 5.41 M/uL (4.33-5.43); Red Cell Distribution Width 13.5 % (12.1-15.2)
[2023-10-20 10:35] LABS: Albumin 3.8 g/dL (3.4-5.0); Albumin/Globulin Ratio 1.1 (1.1-1.8); Anion Gap 5.1 mEq/L (5.0-15.0); Bilirubin Direct 0.2 mg/dL (0-0.2); Bilirubin Indirect, Calculated 0.3 mg/dL (0.2-0.8); Bilirubin Total 0.5 mg/dL (0.2-1.0); Globulin 3.4 g/dL (2.3-3.5); Magnesium 2.1 mg/dL (1.6-2.4); Potassium 4.1 mEq/L (3.5-5.1); Protein, Total 7.2 g/dL (6.4-8.2); Troponin High Sensitivity 4.4 pg/mL (<58.9)
--- NOTE | 2023-10-20 10:52 | ER ---
Nurse's Notes [facility] Name: Shaquille Delgadillo Age: 47 yrs Sex: Male : 1975 Arrival Date: 10/20/2023 Time: 09:32 Bed 6 Private MD: Diagnosis: Collier's palsy Presentation: 10/19 09:34 Chief complaint: Patient states: Ride sided paralysis, onset yesterday at around 6-7pm. nj1 Complains of a headache. Denies weakness and/or difficulty walking. States speech is not normal. 09:34 Coronavirus screen: Vaccine status: Patient reports receiving the 2nd dose of the covid nj1 vaccine. Ebola Screen: Patient denies travel to an Ebola-affected area in the 21 days before illness onset. Initial Sepsis Screen: Does the patient meet any 2 criteria? HR > 90 bpm. No. Patient's initial sepsis screen is negative. Initial Sepsis Screen: Does the patient have a suspected source of infection? No. Patient's initial sepsis screen is negative. Risk Assessment: Do you want to hurt yourself or someone else? Patient reports no desire to harm self or others. Onset of symptoms was October 19, 2023 at 18:00. 09:34 Method Of Arrival: [facility] 09:34 Acuity: [facility] 09:34 An acute neurological deficit is present. The charge nurse has been notified. The nj1 patient has been moved to a treatment area. 10:03 Pre-hospital glucose is not applicable to this patient. Triage Assessment: 09:35 The onset of the patients symptoms was October 19, 2023 at 18:00. General: Appears in no [facility] apparent distress. comfortable, Behavior is calm, cooperative, appropriate for age. Pain: Complains of pain in head Pain currently is 4 out of 10 on a pain scale. Quality of pain is described as aching. 09:35 Neuro: Reports headache weakness in face, right side since yesterday at around 6-7 pm nj1 Denies blurred vision paresthesias Difficulty walking. Neuro: Level of Consciousness is awake, alert, obeys commands, Oriented to person, place, time, situation, Potato Chip Sorter are equal bilaterally Moves all extremities. Gait is steady, Speech is normal, Facial droop on right, Pupils are PERRLA, Intact. Cardiovascular: Patient's skin is warm and dry. Respiratory: Airway is patent Respiratory effort is even, unlabored. Stroke Activation: Physician: ED Attending; Name: ; Notified At: ; Arrived At: Physician: Mid-Level Provider; Name: Rd CISNEROS; Notified At: 09:34; Arrived At: 09:35 Physician: [not used]; Name: ; Notified At: ; Arrived At: Physician: [not used]; Name: ; Notified At: ; Arrived At: Physician: [not used]; Name: ; Notified At: ; Arrived At: Historical: - Allergies: 09:47 Bactrim; nj1 09:47 PENICILLINS; nj1 - Home Meds: 09:47 Adderall XR 30 mg oral Capsule, ER 24 hr [Active]; nj1 - PMHx: 09:47 ADD/ADHD; Anxiety; Panic Attacks; tourretts; nj1 - Immunization history:: Client reports receiving the 2nd dose of the Covid vaccine. - Infectious Disease History:: Denies. - Social history:: Smoking status: Patient denies any tobacco usage or history of. Screenin:03 [facility] ED Fall Risk Assessment (Adult) History of falling in the last 3 months, ph including since admission No falls in past 3 months (0 pts) Confusion or Disorientation No (0 pts) Intoxicated or Sedated No (0 pts) Impaired Gait No (0 pts) Mobility Assist Device Used No (0 pt) Altered Elimination No (0 pt) Score/Fall Risk Level 0 - 2 = Low Risk Oriented to surroundings, Maintained a safe environment, Hourly rounding (assess needs \T\ fall precautionary measures) done. Abuse screen: Denies threats or abuse. Denies injuries from another. Nutritional screening: No deficits noted. Tuberculosis screening: No symptoms or risk factors identified. Assessment: 09:59 VAN Scoring: Arm Drift: Patients demonstrates NO arm weakness. Patient is VAN Negative. ph [place] Swallow Protocol Exclusion Criteria: Unable to remain alert for testing: No NPO for medical/surgical reason by provider order No Tracheostomy tube present No No thin liquids due to preexisting dysphagia/baseline modified diet thickened liquids No Exclusion Criteria Result: Proceed Brief Cognitive Screen What is your name? Normal, Where are you right now? Normal, What year is it? Normal. Oral Mechanism Examination Facial Symmetry: Normal, Motion: Normal, Lip Closure: Normal, Oral Mechanism Result: Normal. 3 oz Water Swallow Challenge: Pt able to drink all water without stopping, coughing, choking or throat clearing: Yes Result: PASS MD Notified: Mary Han PA-C. TNKase (Tenecteplase) Screening: Indications: Treatment will start within 4.5 hours onset of symptoms: No. Contraindications: Patient reports onset of signs and symptoms of stroke greater than 6 hours ago: Yes. General: Appears in no apparent distress. Behavior is calm, cooperative. Pain: Complains of pain in right temporal area. Neuro: Level of Consciousness is awake, alert, obeys commands, Oriented to person, place, time, situation, Potato Chip Sorter are equal bilaterally Moves all extremities. Gait is steady, Speech is normal, Facial droop on right, Pupils are PERRLA, Intact Reports headache in right parietal area. Cardiovascular: Capillary refill < 3 seconds in bilateral fingers Patient's skin is warm and dry. Respiratory: Airway is patent Respiratory effort is even, labored. EENT: Reports cannot close R eye. Derm: Skin is pink, warm \T\ dry. Musculoskeletal: Circulation, motion, and sensation intact. Range of motion: intact in all extremities. Vital Signs: 09:34 BP 132 / 91; Pulse 96; Resp 18; Temp 98.5(O); Pulse Ox 98% on R/A; Weight 79.38 kg; nj1 Height 5 ft. 8 in. ; Pain 4/10; 11:02 BP 127 / 89; Pulse 89; Resp 18; Temp 97.9; Pulse Ox 98% on R/A; ph 09:34 Body Mass Index 26.61 (79.38 kg, 172.72 cm) nj1 09:34 Pain Scale: Adult nj1 NIH Stroke Scale Scores: 09:46 NIHSS Score: 3 sb4 09:59 NIHSS Score: 2 ph ED Course: 09:33 Patient arrived in ED. ra3 09:33 Mary Han PA-C is PHCP. sb4 09:33 Reji Childers MD is Attending Physician. sb4 09:47 Triage completed. nj1 09:47 Arm band placed on. nj1 09:48 Irasema Morelos, RN is Primary Nurse. ph 09:54 CT Head Brain wo Cont In Process Unspecified. EDMS 09:55 Initial lab(s) drawn, by me, sent to lab. Inserted saline lock: 20 gauge in right ko1 antecubital area, using aseptic technique. Blood collected. Flushed with 10 mL NS. :59 Basic Metabolic Panel Sent. ko1 :59 CBC with Diff Sent. ko1 :59 Hepatic Function Sent. ko1 :59 Magnesium Sent. ko1 :59 Protime (+inr) Sent. ko1 :59 Ptt, Activated Sent. ko1 09:59 Troponin High Sensitivity Sent. ko1 10:03 Patient has correct armband on for positive identification. Bed in low position. Call ph light in reach. Side rails up X 1. Client placed on continuous cardiac and pulse oximetry monitoring. NIBP monitoring applied. radiation monitor on. Door closed. Noise minimized. Warm blanket given. Pillow given. 10:04 EKG done, by ED staff, reviewed by Mary Han PA-C. ph 10:51 Ronny Hunter MD is Referral Physician. sb4 11:03 No provider procedures requiring assistance completed. IV discontinued, intact, ph bleeding controlled, No redness/swelling at site. Pressure dressing applied. Administered Medications: No medications were administered Medication: 10:03 VIS not applicable for this client. ph Outcome: 10:51 Discharge ordered by . sb4 11:03 Discharged to home ambulatory, ph 11:03 Condition: good 11:03 Discharge instructions given to patient, Instructed on discharge instructions, follow up and referral plans. medication usage, Demonstrated understanding of instructions, follow-up care, medications, Prescriptions given X 2, 11:04 Patient left the ED. ph NIH Stroke Scale - NIH Stroke Score Date: 10/20/2023 Time: 09:46 Total Score = 3 10. Dysarthria (speech clarity - read or repeat words) - 0(Normal) 11. Extinction and Inattention (visual/tactile/auditory/spatial/personal) - 0(No abnormality) 1a. Level of Consciousness (LOC) - 0(Alert) 1b. Level of Consciousness (LOC) (Month \T\ Age) - 0(Both) 1c. LOC Commands (Open \T\ Closes Eyes/Residence Supervisor) - 0(Both) 2. Best Gaze (Lateral Gaze Paresis) - 0(Normal) 3. Visual Field Loss - 0(No visual loss) 4. Facial Palsy - 3(Complete paralysis) 5a. Left Arm: Motor (10-second hold) - 0(No drift) 5b. Right Arm: Motor (10-second hold) - 0(No drift) 6a. Left Leg: Motor (5-second hold - always test supine) - 0(No drift) 6b. Right Leg: Motor (5-second hold - always test supine) - 0(No drift) 7. Limb Ataxia (finger/nose \T\ heel/crockett - test with eyes open) - 0(Absent) 8. Sensory Loss (pinprick arms/legs/face) - 0(Normal) 9. Best Language: Aphasia (description/naming/reading) - 0(No aphasia) Initials: sb4 NIH Stroke Scale - NIH Stroke Score Date: 10/20/2023 Time: 09:59 Total Score = 2 10. Dysarthria (speech clarity - read or repeat words) - 0(Normal) 11. Extinction and Inattention (visual/tactile/auditory/spatial/personal) - 0(No abnormality) 1a. Level of Consciousness (LOC) - 0(Alert) 1b. Level of Consciousness (LOC) (Month \T\ Age) - 0(Both) 1c. LOC Commands (Open \T\ Closes Eyes/Residence Supervisor) - 1(One) 2. Best Gaze (Lateral Gaze Paresis) - 0(Normal) 3. Visual Field Loss - 0(No visual loss) 4. Facial Palsy - 1(Minor Paralysis) 5a. Left Arm: Motor (10-second hold) - 0(No drift) 5b. Right Arm: Motor (10-second hold) - 0(No drift) 6a. Left Leg: Motor (5-second hold - always test supine) - 0(No drift) 6b. Right Leg: Motor (5-second hold - always test supine) - 0(No drift) 7. Limb Ataxia (finger/nose \T\ heel/crockett - test with eyes open) - 0(Absent) 8. Sensory Loss (pinprick arms/legs/face) - 0(Normal) 9. Best Language: Aphasia (description/naming/reading) - 0(No aphasia) Initials: ph Signatures: Dispatcher [employer] EDMS rIasema Morelos RN RN ph Vicki Taylor RN RN ko1 Mary Han PA-C PA-C sb4 Herbert, Kylah, RN RN nj1 Leung, Sada ra3
--- NOTE | 2023-10-20 10:52 | EDPHYS ---
Physician Documentation [facility] Name: hSaquille Delgadillo Age: 47 yrs Sex: Male : 1975 Arrival Date: 10/20/2023 Time: 09:32 Bed 6 Private MD: ED Physician Reji Childers HPI: 10/19 09:46 This 47 yrs old Male presents to ER via Unassigned with complaints of Facial Droop. sb4 09:46 The patient presents to the emergency department with facial droop. Onset: The sb4 symptoms/episode began/occurred last night. Associated signs and symptoms: Pertinent positives: headache, Pertinent negatives: altered mental status, fever, neck stiffness, paresthesias, syncope, blurred vision, weakness. Patient's baseline: Neuro: alert and fully oriented, Motor: no deficits, Ambulation: walks without assistance, Speech: normal, The patient has a previous history of tourettes. The patient has not experienced similar symptoms in the past. headache and right ear pain x 2 days, noticed right sided facial droop last night, woke up with slurred speech today. denies any weakness, decreased sensation, visual changes, swallowing difficulty, motor deficits. Historical: - Allergies: 09:47 Bactrim; nj1 09:47 PENICILLINS; nj1 - Home Meds: 09:47 Adderall XR 30 mg oral Capsule, ER 24 hr [Active]; nj1 - PMHx: 09:47 ADD/ADHD; Anxiety; Panic Attacks; tourretts; nj1 - Immunization history:: Client reports receiving the 2nd dose of the Covid vaccine. - Infectious Disease History:: Denies. - Social history:: Smoking status: Patient denies any tobacco usage or history of. ROS: 09:46 Constitutional: Negative for fever, chills, and weight loss, sb4 09:46 Neuro: Positive for per HPI, 09:46 All other systems are negative, Exam: 09:46 Constitutional: This is a well developed, well nourished patient who is awake, alert, sb4 and in no acute distress. ENT: Mucous membranes moist. Cardiovascular: Regular rate and rhythm with a normal S1 and S2. Respiratory: Lungs have equal breath sounds bilaterally, clear to auscultation and percussion. No rales, rhonchi or wheezes noted. No increased work of breathing, no retractions or nasal flaring. Abdomen/GI: Soft, non-tender, no distension. Skin: Warm, dry with normal turgor. Normal color with no rashes, no lesions, and no evidence of cellulitis. MS/ Extremity: Pulses equal, no cyanosis. Neurovascular intact. Full, normal range of motion. 09:46 Neuro: Orientation: to person, place, time \T\ situation. Mentation: is normal, appropriate for stated age, responsive to voice able to follow commands, Memory: is normal, Cranial nerves: facial droop noted on right, with forehead involved. Motor: is normal, moves all fours, Sensation: is normal, Gait: is steady, seizure activity, is not displayed by the patient, Vital Signs: 09:34 BP 132 / 91; Pulse 96; Resp 18; Temp 98.5(O); Pulse Ox 98% on R/A; Weight 79.38 kg; nj1 Height 5 ft. 8 in. ; Pain 4/10; 11:02 BP 127 / 89; Pulse 89; Resp 18; Temp 97.9; Pulse Ox 98% on R/A; ph 09:34 Body Mass Index 26.61 (79.38 kg, 172.72 cm) nj1 09:34 Pain Scale: Adult nj1 NIH Stroke Scale Scores: 09:46 NIHSS Score: 3 sb4 09:59 NIHSS Score: 2 ph MDM: 09:34 Patient medically screened. sb4 10:50 Data reviewed: vital signs, nurses notes, lab test result(s), EKG, radiologic studies, sb4 I have discussed the patient's presentation/case with the attending Emergency Department Physician; and as a result, I will discharge patient. Consideration of Admission/Observation Escalation of care including admission/observation considered. Management of patient was discussed with the following: Wet Machine Tender: Dr. Hunter- discussed CT findings. he states that this is not related, does not need to be pursued, can be followed up as an outpatient. Counseling: I had a detailed discussion with the patient and/or guardian regarding the historical points, exam findings, and any diagnostic results supporting the discharge/admit diagnosis, the presence of at least one elevated blood pressure reading (>120/80) during this emergency department visit, lab results, radiology results, the need for outpatient follow up, a neurologist, to return to the emergency department if symptoms worsen or persist or if there are any questions or concerns that arise at home. 10/19 09:41 Order name: Basic Metabolic Panel; Complete Time: 10:36 sb4 10/19 09:41 Order name: CBC with Diff; Complete Time: 10:14 sb4 10/19 09:41 Order name: Hepatic Function; Complete Time: 10:36 sb4 10/19 09:41 Order name: Magnesium; Complete Time: 10:36 sb4 10/19 09:41 Order name: Protime (+inr); Complete Time: 10:11 sb4 10/19 09:41 Order name: Ptt, Activated; Complete Time: 10:11 sb4 10/19 09:41 Order name: Troponin High Sensitivity; Complete Time: 10:36 sb4 10/19 09:41 Order name: CT Head Brain wo Cont; Complete Time: 10:09 sb4 10/19 09:41 Order name: Cardiac monitoring; Complete Time: 09:50 sb4 10/19 09:41 Order name: EKG - Nurse/Tech; Complete Time: 09:59 sb4 10/19 09:41 Order name: IV Saline Lock; Complete Time: 09:59 sb4 10/19 09:41 Order name: Labs collected and sent; Complete Time: 09:59 sb4 10/19 09:41 Order name: O2 Per Protocol; Complete Time: 09:48 sb4 10/19 09:41 Order name: O2 Sat Monitoring; Complete Time: 09:48 sb4 EC:04 Rate is 80 beats/min. Rhythm is regular, Normal Sinus Rhythm. MT interval is normal at sb4 140 msec. QRS interval is normal at 90 msec. QT interval is normal at 344 msec. No Q waves. T waves are Normal. No ST changes noted. Clinical impression: Normal ECG and No evidence of ischemia. Interpreted by me. Reviewed by me. Administered Medications: No medications were administered Disposition: 13:51 Co-signature as Attending Physician, Reji Childers MD I reviewed the patient's care rn provided by the Advanced Practice Provider and agree with the diagnosis and treatment plan. Disposition Summary: 10/20/23 10:51 Discharge Ordered Notes: Location: Home sb4 Problem: new sb4 Symptoms: have improved sb4 Condition: Stable sb4 Diagnosis - Collier's palsy sb4 Followup: sb4 - With: Emergency Department - When: As needed - Reason: Worsening of condition Followup: sb4 - With: Ronny Hunter MD - When: 1 week - Reason: Further diagnostic work-up, Recheck today's complaints, Re-evaluation by your physician Discharge Instructions: - Discharge Summary Sheet sb4 - Collier's Palsy, Adult sb4 Forms: - Work release form ph - Patient Portal Instructions sb4 - Leadership Thank You Letter sb4 Prescriptions: - valacyclovir 1 gram Oral tablet - take 1 tablet ORAL route every 8 hours for 7 days; 21 tablet; Refills: 0, sb4 Product Selection Permitted - Prednisone 20 mg Oral tablet - take 3 tablets ORAL route once daily for 7 days; 21 tablet; Refills: 0, Product sb4 Selection Permitted NIH Stroke Scale - NIH Stroke Score Date: 10/20/2023 Time: 09:46 Total Score = 3 10. Dysarthria (speech clarity - read or repeat words) - 0(Normal) 11. Extinction and Inattention (visual/tactile/auditory/spatial/personal) - 0(No abnormality) 1a. Level of Consciousness (LOC) - 0(Alert) 1b. Level of Consciousness (LOC) (Month \T\ Age) - 0(Both) 1c. LOC Commands (Open \T\ Closes Eyes/Teacher Instrumental) - 0(Both) 2. Best Gaze (Lateral Gaze Paresis) - 0(Normal) 3. Visual Field Loss - 0(No visual loss) 4. Facial Palsy - 3(Complete paralysis) 5a. Left Arm: Motor (10-second hold) - 0(No drift) 5b. Right Arm: Motor (10-second hold) - 0(No drift) 6a. Left Leg: Motor (5-second hold - always test supine) - 0(No drift) 6b. Right Leg: Motor (5-second hold - always test supine) - 0(No drift) 7. Limb Ataxia (finger/nose \T\ heel/crockett - test with eyes open) - 0(Absent) 8. Sensory Loss (pinprick arms/legs/face) - 0(Normal) 9. Best Language: Aphasia (description/naming/reading) - 0(No aphasia) Initials: sb4 NIH Stroke Scale - NIH Stroke Score Date: 10/20/2023 Time: 09:59 Total Score = 2 10. Dysarthria (speech clarity - read or repeat words) - 0(Normal) 11. Extinction and Inattention (visual/tactile/auditory/spatial/personal) - 0(No abnormality) 1a. Level of Consciousness (LOC) - 0(Alert) 1b. Level of Consciousness (LOC) (Month \T\ Age) - 0(Both) 1c. LOC Commands (Open \T\ Closes Eyes/Teacher Instrumental) - 1(One) 2. Best Gaze (Lateral Gaze Paresis) - 0(Normal) 3. Visual Field Loss - 0(No visual loss) 4. Facial Palsy - 1(Minor Paralysis) 5a. Left Arm: Motor (10-second hold) - 0(No drift) 5b. Right Arm: Motor (10-second hold) - 0(No drift) 6a. Left Leg: Motor (5-second hold - always test supine) - 0(No drift) 6b. Right Leg: Motor (5-second hold - always test supine) - 0(No drift) 7. Limb Ataxia (finger/nose \T\ heel/crockett - test with eyes open) - 0(Absent) 8. Sensory Loss (pinprick arms/legs/face) - 0(Normal) 9. Best Language: Aphasia (description/naming/reading) - 0(No aphasia) Initials: ph Signatures: Dispatcher [employer] EDMS Reji Childers MD MD rn Brown, Sophia, PA-C PAFlo sb4 Kylah Godinez RN RN nj1 Corrections: (The following items were deleted from the chart) 09:42 09:42 BASIC METABOLIC PANEL+C.LAB.BRZ ordered. EDMS EDMS 09:42 09:42 CBC+H.LAB.BRZ ordered. EDMS EDMS 09:42 09:42 HEPATIC FUNCTION+C.LAB.BRZ ordered. EDMS EDMS 09:42 09:42 MAGNESIUM+C.LAB.BRZ ordered. EDMS EDMS 09:42 09:42 PROTIME (+INR)+COAG.LAB.BRZ ordered. EDMS EDMS 09:42 09:42 PTT, ACTIVATED+COAG.LAB.BRZ ordered. EDMS EDMS 09:42 09:42 Troponin High Sensitivity+C.LAB.BRZ ordered. EDMS EDMS 09:42 09:42 Head Brain Wo Cont+CT.RAD.BRZ ordered. EDMS EDMS
[2023-10-20 11:10] VITALS: O2SAT 98
[2023-10-20 11:11] VITALS: BP 127/89; TEMP 97.9
--- NOTE | 2023-10-21 13:48 | EKG ---
Test Date: 2023-10-20 Test Time: 09:55:31 Cranberry Sorter: PH MEASUREMENT RESULTS: Intervals: Rate: 80 MN: 140 QRSD: 90 QT: 344 QTc: 396 Murphy: P: 51 MN: 140 QRS: 68 T: 62 INTERPRETIVE STATEMENTS: Normal sinus rhythm Normal ECG Compared to ECG 05/22/2023 19:51:06 Myocardial infarct finding no longer present Electronically Signed On 10-21-23 13:45:01 CDT by Abhinav Hodgson
== END 2023-10-20 11:04 | disposition home or self-care (01) ==
LOC: ER 09:32
DX: G51.0 Bell's palsy (principal); R29.703 NIHSS score 3
CPT/HCPCS: 36415; 70450; 80048; 80076; 83735; 84484; 85025; 85610; 85730; 93005; 99285

== ENCOUNTER 2024-05-07 08:31 | Emergency (ER) | payer OTHER ==
--- OUTSIDE RECORDS SUMMARY | 2024-05-07 08:35 | XMS REPORT | Continuity of Care Document ---
Author Name Unknown Address [address] [facility] [address] [place] [address] [facility] thconnect Address [address] [facility] [address] [place] [address] Care Team Providers Care 3Rd Mate Name Role Phone Kam LEYVA, Vicki Hensley Primary Care Physician Tariq Arreola Attending Clinician Unavailable IVORY GUZMAN Attending Clinician UnavailABHISHEK Trevino Attending Clinician Unavailable HILDA GARCIA Attending Clinician Unavailable VICKI DEMPSEY Attending Clinician Unaary FAITH Attending Clinician Unavailable Vicki Dempsey MD Attending Clinician [phone] Payers Payer Name Policy Type Policy Number Effective Date Expirati on Date Source [place] [employer] 94 9 [id number] 2024 00:00:00 [facility] 2 [id number] 2021 00:00:00 [facility] 2 [id number] 2020 00:00:00 Problems Condition Name Condition Details Condition Category Status Onset Date Resolution Date Last Treatment Date Treating Clinician Comments Source Collier's palsy Collier's palsy Disease Active 11-19 00:00: 00 Hannah richardson Well adult exam Well adult exam Disease Active 11-05 00:00: 00 Hannah richardson Hiatal hernia with GERD Hiatal hernia with GERD Disease Active 11-05 00:00: 00 Hannah Dooleya dylan Acute pain of right shoulder Acute pain of right shoulder Disease Active 2021-03 1 00:00: 00 Hannah Dooleya dylan Attention deficit hyperactiv ity disorder (ADHD) Attention deficit hyperactiv ity disorder (ADHD) Disease Active 10-10 00:00: 00 Hannah Machado Externa dylan Tourette's - Unchanged Tourette's - Unchanged Disease Active 10-10 00:00: 00 Hannah Dooleya dylan Kidney stone Kidney stone Problem Active [facility] Hydronephr osis with urinary obstructio n due to renal calculus Hydronephr osis with urinary obstructio n due to renal calculus Problem Active [facility] Allergies, Adverse Reactions, Alerts Allergy Name Allergy Type Status Severity Reaction(s) Onset Date Inactive Date Treating Clinician Comments Source Na Benzoate -Sulfame thoxazol e-Trimet hoprim Propensi ty to adverse reaction s Active Nausea and Vomiting 04-07 00:00: 00 Other reaction( s): Unknown Hannah Dooleya dylan Penicill ins Propensi ty to adverse reaction s Active Hives 04-11 00:00: 00 Hannah Dooleya l Trimetho prim Propensi ty to adverse reaction s Active Hives 04-11 00:00: 00 Hannah Dooleya dylan Bactrim Adverse Reaction Active Info Not Available [facility] Social History Social Habit Start Date Stop Date Quantity Comments Source History of Occupation Hannah Corona - External Exposure to SARS-CoV-2 (event) Not sure Hannah gonzalez Gender identity Tawana Corona - External Sexual orientation José Luis Corona - External Alcoholic beverage intake 2024-04-13 00:00:00 2024-04-13 00:00:00 Ex-drinker (finding) Hannah Corona - External Alcohol intake 2023-03-08 00:00:00 2023-03-08 00:00:00 Ex-drinker (finding) Hannah Corona - External History of Social function 2022-11-26 00:00:00 2022-11-26 00:00:00 Hannah Machado External Tobacco use and exposure 2022-11-05 00:00:00 2022-11-05 00:00:00 Smokeless tobacco non-user Hannah Malhotraelaineoz Machado External Education 2022-11-05 00:00:00 2022-11-05 00:00:00 17 Hannah Corona - External Sex 2020-10-07 09:54:29 2020-10-07 09:54:29 Male (finding) Hannah Corona - External Sex [birth year] at 1975 00:00:00 1975 00:00:00 Hannah Machado External Smoking Status Start Date Stop Date Source Never smoked tobacco Hannah Seelaineoz Machado External Medications Ordered Medication Name Filled Medication Name Start Date Stop Date Current Medication? Ordering Clinician Indication Dosage Frequency Signature (SIG) Comments Components Source Amphetamine -Dextroamph etamine 30 MG oral Capsule 24 Hour Sustained Release 1-02 00:00: 00 04-13 00:00 :00 No [id number] 30mg Take 1 capsule (30 mg total) by mouth every morning. Hannah richardson Valacyclovi r HCl 1 g oral Tablet 8-11 00:00: 00 11-19 00:00 :00 No TAKE ONE (1) TABLET(S) BY MOUTH EVERY EIGHT HOURS FOR 7 DAYS. Hannah richardson Amphetamine -Dextroamph etamine 30 MG oral Capsule 24 Hour Sustained Release 2023-0 7-17 00:00: 00 Yes [id number] 30mg Take 1 capsule (30 mg total) by mouth every morning. Hannah richardson Amphetamine -Dextroamph etamine 30 MG oral Capsule 24 Hour Sustained Release 4-0 4-30 00:00: 00 Yes [id number] 30mg Take 1 capsule (30 mg total) by mouth every morning. Hannah richardson Amphetamine -Dextroamph etamine 30 MG oral Capsule 24 Hour Sustained Release 4-0 3-08 00:00: 00 07-08 00:00 :00 No [id number] 30mg Take 1 capsule (30 mg total) by mouth every morning. Hannah richardson Amphetamine -Dextroamph etamine 30 MG oral Capsule 24 Hour Sustained Release 2022-03 2- 00:00: 00 Yes [id number] 30mg Take 1 capsule (30 mg total) by mouth every morning. Hannah richardson Amphetamine -Dextroamph etamine 30 MG oral Capsule 24 Hour Sustained Release 2022-03 00:00: 00 03-08 00:00 :00 No [id number] 30mg Take 1 capsule (30 mg total) [...] Hour Sustained Release 11-05 00:00: 00 Yes [id number] 30mg Take 1 capsule (30 mg total) by mouth every morning. Hannah richardson Amphetamine -Dextroamph etamine 30 MG oral Capsule 24 Hour Sustained Release 10-09 00:00: 00 11-05 00:00 :00 No [id number] 30mg Take 1 capsule (30 mg total) [...] MG oral Capsule 24 Hour Sustained Release 4 00:00: 00 Yes [id number] 30mg Take 1 capsule (30 mg total) by mouth every morning Hannah richardson Acetaminoph en (TYLENOL) 325 MG oral Tablet tablet 2021-03 16:05: 26 Yes 1{tbl} Take 1 tablet by mouth as needed Hannah Dooleykristin dylan Ondansetron (ZOFRAN) 4 MG oral TABLET DISPERSIBLE 2021-03 16:05: 14 Yes 1 tablet on the tongue and allow to dissolve Hannah Dooleykristin dylan Tamsulosin HCl 0.4 MG oral Capsule 2021-03 16:05: 12 01-12 00:00 :00 No 1{capsu le} 1 capsule Hannah Dooleykristin dylan Ciprofloxac in HCl 500 MG oral Tablet 2021-03 16:04: 24 01-12 00:00 :00 No 1{tbl} Take 1 tablet by mouth Hannah richardson Amphetamine -Dextroamph etamine 30 MG oral Capsule 24 Hour Sustained Release 2021-03 00:00: 00 Yes [id number] 30mg Take 1 capsule (30 mg total) by mouth every morning Hannah richardson Amphetamine -Dextroamph etamine 30 MG oral Capsule 24 Hour Sustained Release 9-23 00:00: 00 01-12 00:00 :00 No [id number] 30mg Take 1 capsule (30 mg total) [...] Hour Sustained Release 05-10 00:00: 00 Yes [id number] 30mg Take 1 capsule (30 mg total) by mouth every morning Hannah Corona Amphetamine -Dextroamph etamine 30 MG oral Capsule 24 Hour Sustained Release 04-07 00:00: 00 05-10 00:00 :00 No [id number] 30mg Take 1 capsule (30 mg total) [...] Hour Sustained Release 2020-03 00:00: 00 Yes [id number] 30mg Take 1 capsule (30 mg total) by mouth every morning Hannah Corona Cyclobenzap rine HCl 5 MG oral Tablet 2020-03 00:00: 00 01-12 00:00 :00 No [id number] 9106 5mg [id number] 3D Take 1 tablet (5 mg total) by mouth every 8 hours as needed for muscle spasms Hannah Corona - Externa l Amphetamine -Dextroamph etamine 30 MG oral Capsule 24 Hour Sustained Release 2020-03 0-14 00:00: 00 01-27 00:00 :00 No [id number] 30mg Take 1 capsule (30 mg total) by mouth every morning Hannah Corona Tamsulosin HCl Tamsulosin HCl Yes Ivana Apolinar 1 capsule [facility] Ondansetron Ondansetron Yes Ivana Hanlee 1 tablet on the tongue and allow to dissolve [facility] Adderall XR Adderall XR Yes Ivana Hanlee 1 capsule in the morning [facility] Acetaminoph en Acetaminoph en Yes Iavna Hanlee 1 tablet as needed [facility] Ciprofloxac in HCl Ciprofloxac in HCl Yes Ivana [place] 1 tablet [facility] Immunizations Ordered Immunization Name Filled Immunization Name Date Status Comments Source Tdap- (Boostrix, Adacel) 2022-11-05 00:00:00 Completed Hannah Flanaganold - External Covid-19 Vaccine (Strange[employer]ic), Mrna-lnp, Duy Protein, Pf, 30mcg/0.3ml,IM 2020-07-02 00:00:00 Completed Hannah Flanaganold - External Covid-19 Vaccine (StrangeLogic), Mrna-lnp, Duy Protein, Pf, 30mcg/0.3ml,IM 2020-07-02 00:00:00 Completed Hannah Seybold - External Covid-19 Vaccine (StrangeLogic), Mrna-lnp, Duy Protein, Pf, 30mcg/0.3ml,IM 2020-07-02 00:00:00 Completed Hannah Seybold Covid-19 Vaccine (StrangeLogic), Mrna-lnp, Duy Protein, Pf, 30mcg/0.3ml,IM 2020-07-02 00:00:00 Completed Hannah Seybold Covid-19 Vaccine (StrangeLogic), Mrna-lnp, Duy Protein, Pf, 30mcg/0.3ml,IM 2020-07-02 00:00:00 Completed Hannah Seybold - External Covid-19 Vaccine (StrangeLogic), Mrna-lnp, uDy Protein, Pf, 30mcg/0.3ml,IM 2020-06-10 00:00:00 Completed Hannah Seybold - External Covid-19 Vaccine (StrangeLogic), Mrna-lnp, Duy Protein, Pf, 30mcg/0.3ml,IM 2020-06-10 00:00:00 Completed Hannah Seybold - External Covid-19 Vaccine (StrangeLogic), Mrna-lnp, Duy Protein, Pf, 30mcg/0.3ml,IM 2020-06-10 00:00:00 Completed Hannah Corona Covid-19 Vaccine (StrangeLogic), Mrna-lnp, Duy Protein, Pf, 30mcg/0.3ml,IM 2020-06-10 00:00:00 Completed Hannah Corona Covid-19 Vaccine (Pfizer), Mrna-lnp, Duy Protein, Pf, 30mcg/0.3ml,IM 2020-06-10 00:00:00 Completed Hannah Corona - External Covid-19 Vaccine (StrangeLogic), Mrna-lnp, Duy Protein, Pf, 30mcg/0.3ml,IM Unknown Completed Hannah Flanaganol d - External Tdap- (Boostrix, Adacel) Unknown Completed Hannah Corona - External Covid-19 Vaccine (Strange[employer]ic), Mrna-lnp, Duy Protein, Pf, 30mcg/0.3ml,IM Unknown Completed Hannah Flanaganol d - External Tdap- (Boostrix, Adacel) Unknown Completed Hannah Corona - External Covid-19 Vaccine (StrangeLogic), Mrna-lnp, Duy Protein, Pf, 30mcg/0.3ml,IM Unknown Completed Hannah Flanaganol d - External Tdap- (Boostrix, Adacel) Unknown Completed Hannah Corona - External Covid-19 Vaccine (StrangeLogic), Mrna-lnp, Duy Protein, Pf, 30mcg/0.3ml,IM Unknown Completed Hannah Flanaganol d - External Tdap- (Boostrix, Adacel) Unknown Completed Hannah Corona - External Vital Signs Vital Name Observation Time Observation Value Comments S ource Heart rate 2024-04-13 16:59:00 89 /min Gui Corona - External Systolic blood pressure 2024-04-13 16:47:00 132 mm[Hg] Hannah Oconnor ld - External Diastolic blood pressure 2024-04-13 16:47:00 86 mm[Hg] Hannah Oconnor ld - External Body temperature 2024-04-13 16:47:00 36.11 Shellie Hannah Corona - External Respiratory rate 2024-04-13 16:47:00 16 /min Hannah Corona - External Body height 2024-04-13 16:47:00 172.7 cm Tawana ey Seybold - External Body weight 2024-04-13 16:47:00 77.565 kg Tawana ey Seybold - External BMI 2024-04-13 16:47:00 26.00 kg/m2 Tawana ey Seybold - External Oxygen saturation in Arterial blood by Pulse oximetry 2024-04-13 16:47:00 95 /min Hannah Seybo ld - External Systolic blood pressure 2023-11-20 19:46:00 114 mm[Hg] Hannah Seybo ld - External Diastolic blood pressure 2023-11-20 19:46:00 68 mm[Hg] Hannah Seybo ld - External Heart rate 2023-11-20 19:46:00 86 /min Kelse y Seybold - External Body temperature 2023-11-20 19:46:00 36.56 Shellie Hannah Seybold - External Respiratory rate 2023-11-20 19:46:00 20 /min Hannah Seybold - External Body height 2023-11-20 19:46:00 172.7 cm Tawana ey Seybold - External Body weight 2023-11-20 19:46:00 80.91 kg Tawana ey Seybold - External BMI 2023-11-20 19:46:00 27.12 kg/m2 Tawana ey Seybold - External Oxygen saturation in Arterial blood by Pulse oximetry 2023-11-20 19:46:00 96 /min Hannah Seybo ld - External Systolic blood pressure 2023-07-09 13:03:00 114 mm[Hg] Hannah Seybo ld - External Diastolic blood pressure 2023-07-09 13:03:00 72 mm[Hg] Hannah Seybo ld - External Heart rate 2023-07-09 13:03:00 77 /min Kelse y Seybold - External Body temperature 2023-07-09 [...] Pulse oximetry 2023-07-09 13:03:00 98 /min Hannah Seybo ld - External Systolic blood pressure 2023-03-08 15:06:00 118 mm[Hg] Hannah Seybo ld - External Diastolic blood pressure 2023-03-08 15:06:00 68 mm[Hg] Hannah Seybo ld - External Heart rate 2023-03-08 15:06:00 88 /min Leonidse y Seybold - External Body temperature 2023-03-08 [...] External Heart rate 2022-11-05 18:20:00 86 /min Leonidse y Seybold - External Body temperature 2022-11-05 [...] External Heart rate 2022-01-12 21:01:00 104 /min Leonidse y Seybold - External Body temperature 2022-01-12 [...] Respiratory rate 2021-01-27 15:11:00 14 /min Hannah Seybold Body height 2021-01-27 15:11:00 152.4 cm Tawana ey Seybold Body weight 2021-01-27 15:11:00 87.091 kg Tawana ey Seybold BMI 2021-01-27 15:11:00 37.50 kg/m2 Tawana ey Seybold Encounters Start Date/Time End Date/Time Encounter Type Admission Type Attending [facility] Care Department Encounter ID Source 2021-04-05 11:03:41 Outpatient Tariq Arreola [facility] [id number] [facility] 2024-05-11 08:30:00 2024-05-11 08:30:00 Outpatient IVORY GUZMAN [id number] Hannah Corona 2024-04-13 11:00:00 2024-04-13 11:00:00 Outpatient IVORY GUZMAN [id number] Hannah Malhotrayboz 2024-04-13 00:00:00 2024-04-13 00:00:00 Outpatient ABHISHEK HIGH [id number] Hannah Seyboz 2024-03-12 00:00:00 2024-03-12 00:00:00 Outpatient PREZASABHISHEK HANNAH [id number] [facility] 2024-02-11 00:00:00 2024-02-11 00:00:00 Outpatient PREZASABHISHEK HANNAH HANNAH [id number] [facility] 2024-01-06 00:00:00 2024-01-06 00:00:00 Outpatient PREZASABHISHEK HANNAH NUÑEZ [id number] [facility] 2023-12-02 10:00:00 2023-12-02 10:00:00 Outpatient GARCIAHILDA VIRK HANNAH NUÑEZ [id number] [facility] 2023-11-21 00:00:00 2023-11-21 00:00:00 Outpatient PREZASABHISHEK HANNAH NUÑEZ [id number] [facility] 2023-11-20 15:00:00 2023-11-20 15:00:00 Outpatient IVORY GUZMAN HANNAH NUÑEZ [id number] [facility]09 08:00:00 2023-10-09 08:00:00 Outpatient PREZASABHISHEK HANNAH NUÑEZ [id number] [facility] 2023-09-25 00:00:00 2023-09-25 00:00:00 Outpatient PREZASABHISHEK HANNAH NUÑEZ [id number] [facility] 2023-08-16 00:00:00 2023-08-16 00:00:00 Outpatient PREZASABHISHEK HANNAH NUÑEZ [id number] [facility] 2023-08-15 00:00:00 2023-08-15 00:00:00 Outpatient VICKI DEMPSEY [id number] Hannah Seybold 2023-08-14 00:00:00 2023-08-14 00:00:00 Outpatient PREZASABHISHEK HANNAH NUÑEZ [id number] Hannah Seybold 2023-07-09 08:00:00 2023-07-09 08:00:00 Outpatient VICKI DEMPSEY [id number] [facility] 2023-05-17 00:00:00 2023-05-17 00:00:00 Outpatient PREZAS, ABHISHEK HANNAH NUÑEZ [id number] Hannah Malhotraoz 2023-05-17 00:00:00 2023-05-17 00:00:00 Outpatient VICKI DEMPSEY HANNAH NUÑEZ [id number] Hannah Malhotrayboz 2023-04-15 00:00:00 2023-04-15 00:00:00 Outpatient PREZAS, ABHISHEK HANNAH NUÑEZ [id number] [facility]23-03-08 09:00:00 2023-03-08 09:00:00 Outpatient VICKI DEMPSEY HANNAH NUÑEZ [id number] [facility] 2023-02-04 00:00:00 2023-02-04 00:00:00 Outpatient PREZAS, ABHISHEK HANNAH NUÑEZ [id number] [facility] 2023-01-23 00:00:00 2023-01-23 00:00:00 Outpatient PREZAS, ABHISHEK HANNAH NUÑEZ [id number] [facility]22-[facility]-17 00:00:00 2022-12-17 00:00:00 Outpatient PREZAS, ABHISHEK HANNAH NUÑEZ [id number] [facility] 2022-11-16 09:25:00 2022-11-16 09:25:00 Outpatient FESTUSKrissy NUÑEZ [id number] [facility] 2022-11-15 00:00:00 2022-11-15 00:00:00 Outpatient PREZAS, ABHISHEK HANNAH NUÑEZ [id number] [facility] 2022-11-05 13:30:00 2022-11-05 13:30:00 Outpatient PREZAS, ABHISHEK NUÑEZ [id number] [facility] 2022-10-09 00:00:00 2022-10-09 00:00:00 Outpatient PREZAS, ABHISHEK NUÑEZ [id number] [facility] 2022-09-04 00:00:00 2022-09-04 00:00:00 Outpatient PREZAS, ABHISHEKEDMAR NUÑEZ [id number] [facility] 2022-07-25 00:00:00 2022-07-25 00:00:00 Outpatient PREZAS, ABHISHEK NUÑEZ [id number] Hannah [facility] 2022-07-05 14:15:00 2022-07-05 14:15:00 Outpatient PREZAS, ABHISHEK NUÑEZ [id number] Hannah [facility] 2022-06-18 00:00:00 2022-06-18 00:00:00 Outpatient PREZAS, ABHISHEK NUÑEZ [id number] Hannah [facility] 2022-05-10 00:00:00 2022-05-10 00:00:00 Outpatient PREZAS, ABHISHEK NUÑEZ [id number] Hannah [facility] 2022-04-10 00:00:00 2022-04-10 00:00:00 Outpatient PREZAS, ABHISHEK NUÑEZ [id number] Hannah [facility] 2022-04-05 00:00:00 2022-04-05 00:00:00 Outpatient PREZAS, ABHISHEK NUÑEZ [id number] [facility] 2022-02-21 00:00:00 2022-02-21 00:00:00 Outpatient PREZAS, ABHISHEK BAUGHSEY [id number] [facility] 2022-02-19 00:00:00 2022-02-19 00:00:00 Outpatient PREZAS, ABHISHEK BAUGHSEY [id number] [facility] 2022-01-12 16:00:00 2022-01-12 16:00:00 Outpatient PREZAS, ABHISHEK NUÑEZ HANNAH [id number] [facility] 2022-01-09 15:45:00 2022-01-09 15:45:00 Outpatient PREZAS, ABHISHEK NUÑEZ HANNAH [id number] [facility] 2021-09-20 00:00:00 2021-09-20 00:00:00 Outpatient [facility]ICK[facility] DEMPSEY [id number] [facility] 2021-08-21 08:45:00 2021-08-21 09:00:[facility] [id number] Hannah [facility] 2021-06-13 00:00:00 2021-06-13 00:00:00 Outpatient VICKI DEMPSEY HANNAH NUÑEZ [id number] [facility] 2021-05-10 16:00:00 2021-05-10 16:15:00 Office Visit Vicki Dempsey [facility] [id number] Hannah [facility] 2021-04-07 00:00:00 2021-04-07 00:00:00 Outpatient VICKI DEMPSEY [id number] Hannah [facility] 2021-03-02 00:00:00 2021-03-02 00:00:00 Outpatient VICKI DEMPSEY [id number] [facility] 2021-01-27 09:00:00 2021-01-27 09:30:00 Office Visit Vicki Dempsey [place] [id number] Hannah [facility] 2021-01-25 00:00:00 2021-01-25 00:00:00 Outpatient VICKI DEMPSEY [id number] Hannah [facility] 2020-10-10 15:00:00 2020-10-10 15:00:00 Outpatient VICKI DEMPSEY [id number] [facility] 2019-04-13 09:42:00 2019-04-13 09:42:00 [facility] [id number] [facility] 2019-04-07 10:30:00 2019-04-07 10:30:00 [facility] [id number] [facility] Notes Date/Time Note Provider Source 2023-11-20 15:00:04 Chief Complaint Patient presents with ER F/U Dx with [place] palsy Anju Mantilla [facility] 2023-07-09 08:08:26 Chief Complaint Patient presents with Follow-up Needs refill on Adderall Anju Mantilla [facility] 2023-03-08 09:08:44 Chief Complaint Patient presents with REFILLS-NURSE/MD Patient needs refill on medication Anju Mantilla LVN [employer] Anju Mantilla LVN [facility]
[2024-05-07] MEDS ORDERED: DERMABOND SKIN ADHESIVE TOP ONE (09:07)
--- NOTE | 2024-05-07 09:21 | ER ---
Nurse's Notes [facility] Name: Shaquille Delgadillo Age: 48 yrs Sex: Male : 1975 Arrival Date: 05/07/2024 Time: 08:31 Bed 19 Private MD: Diagnosis: 1 cm laceration to the face with repair Presentation: 05/07 08:51 Chief complaint: Patient states: he was waking up this morning when he tripped and hit ap3 his left eyebrow on the corner of his coffee table. patient denies any LOC or blood thinner use. Coronavirus screen: At this time, the client does not indicate any symptoms associated with coronavirus-19. Ebola Screen: No symptoms or risks identified at this time. Complicating Factors: There are no complicating factors for this patient. Initial Sepsis Screen: Does the patient meet any 2 criteria? HR > 90 bpm. Does the patient have a suspected source of infection? No. Patient's initial sepsis screen is negative. Risk Assessment: Do you want to hurt yourself or someone else?. Onset of symptoms was May 07, 2024. 08:51 Method Of Arrival: Ambulatory ap3 08:51 Acuity: RAYNA 3 ap3 Triage Assessment: 08:53 General: Appears in no apparent distress. Behavior is calm, cooperative. Pain: ap3 Complains of pain in outer aspect of left eyebrow Pain began suddenly. Neuro: Level of Consciousness is awake, alert, obeys commands, Oriented to person, place, time, situation. Cardiovascular: Patient's skin is warm and dry. Respiratory: Airway is patent Respiratory effort is even, unlabored, Respiratory pattern is regular, symmetrical. Derm: Wound noted outer aspect of left eyebrow. Injury Description: Laceration sustained to outer aspect of left eyebrow is. Historical: - Allergies: 08:53 Bactrim; ap3 08:53 PENICILLINS; ap3 - PMHx: 08:53 ADD/ADHD; Anxiety; Panic Attacks; tourretts; ap3 - Immunization history:: Client reports receiving the 2nd dose of the Covid vaccine. - Infectious Disease History:: Denies. - Social history:: Smoking status: Patient denies any tobacco usage or history of. Screenin:54 [facility] ED Fall Risk Assessment (Adult) History of falling in the last 3 months, ap3 including since admission Yes- single mechanical fall (1 pt) Confusion or Disorientation No (0 pts) Intoxicated or Sedated No (0 pts) Impaired Gait No (0 pts) Mobility Assist Device Used No (0 pt) Altered Elimination No (0 pt) Score/Fall Risk Level 0 - 2 = Low Risk Oriented to surroundings, Maintained a safe environment, Educated pt \T\ family on fall prevention, incl call for assistance when getting out of bed, Assessed \T\ reinforced patient's understanding of fall precautions, Hourly rounding (assess needs \T\ fall precautionary measures) done, Used ambulatory aids as needed (educated on \T\ assisted with). Abuse screen: Denies threats or abuse. Nutritional screening: No deficits noted. Tuberculosis screening: No symptoms or risk factors identified. Assessment: 09:29 Musculoskeletal: Range of motion: intact in all extremities. ap3 Vital Signs: 08:51 BP 143 / 89; Pulse 109; Resp 18; Temp 98.8; Pulse Ox 100% ; Weight 79.38 kg; Height 5 ap3 ft. 8 in. ; Pain 2/10; 08:51 Body Mass Index 26.61 (79.38 kg, 172.72 cm) ap3 08:51 Pain Scale: Adult ap3 ED Course: 08:34 Patient arrived in ED. im 08:36 Missy Henson MD is Attending Physician. sp3 08:53 Triage completed. ap3 08:54 Irrigation of laceration on outer aspect of left eyebrow irrigated with normal saline ap3 Hibiclens solution Patient tolerated well. 08:55 Arm band placed on right wrist. ap3 08:55 Patient has correct armband on for positive identification. Bed in low position. Call ap3 light in reach. Side rails up X 1. Provided Education on: wound care. 09:29 No provider procedures requiring assistance completed. Patient did not have IV access ap3 during this emergency room visit. Administered Medications: No medications were administered Medication: 09:29 VIS not applicable for this client. ap3 Outcome: 09:21 Discharge ordered by . sp3 09:29 Discharged to home ambulatory, ap3 09:29 Condition: good 09:29 Discharge instructions given to patient, Instructed on discharge instructions, follow up and referral plans. wound care, Demonstrated understanding of instructions, follow-up care, wound care, Prescriptions given X 09:29 Patient left the ED. ap3 Signatures: Celeste Royal RN RN ap3 Missy Henson MD MD sp3 Dorothea Duke
--- NOTE | 2024-05-07 09:21 | EDPHYS ---
Physician Documentation [facility] Name: Shaquille Delgadillo Age: 48 yrs Sex: Male : 1975 Arrival Date: 05/07/2024 Time: 08:31 Bed 19 Private MD: ED Physician Missy Henson HPI: 05/07 09:17 This 48 yrs old Male presents to ER via Ambulatory with complaints of Laceration - to sp3 eyebrow. 09:17 48-year-old male with a history of panic attacks and anxiety presents with left sp3 forehead christian area laceration secondary to mechanical fall while getting his kids ready for school. No LOC reported and no secondary injury. ROS otherwise negative.. Historical: - Allergies: 08:53 Bactrim; ap3 08:53 PENICILLINS; ap3 - PMHx: 08:53 ADD/ADHD; Anxiety; Panic Attacks; tourretts; ap3 - Immunization history:: Client reports receiving the 2nd dose of the Covid vaccine. - Infectious Disease History:: Denies. - Social history:: Smoking status: Patient denies any tobacco usage or history of. ROS: 09:19 Constitutional: Negative for fever, chills, and weight loss, Eyes: Negative for injury, sp3 pain, redness, and discharge, Neck: Negative for injury, pain, and swelling, Cardiovascular: Negative for chest pain, palpitations, and edema, Respiratory: Negative for shortness of breath, cough, wheezing, and pleuritic chest pain, Abdomen/GI: Negative for abdominal pain, nausea, vomiting, diarrhea, and constipation, Back: Negative for injury and pain, MS/Extremity: Negative for injury and deformity, Neuro: Negative for headache, weakness, numbness, tingling, and seizure, 09:19 All other systems are negative, Exam: 09:19 Constitutional: This is a well developed, well nourished patient who is awake, alert, sp3 and in no acute distress. Eyes: Pupils equal round and reactive to light, extra-ocular motions intact. Lids and lashes normal. Conjunctiva and sclera are non-icteric and not injected. Cornea within normal limits. Periorbital areas with no swelling, redness, or edema. ENT: Nares patent. No nasal discharge, no septal abnormalities noted. External auditory canals are clear. Oropharynx with no redness, swelling, or masses, exudates, or evidence of obstruction, uvula midline. Mucous membranes moist. Neck: Trachea midline, no thyromegaly or masses palpated, and no cervical lymphadenopathy. Supple, full range of motion without nuchal rigidity, or vertebral point tenderness. No Meningismus. Chest/axilla: Normal chest wall appearance and motion. Nontender with no deformity. No lesions are appreciated. Cardiovascular: Regular rate and rhythm with a normal S1 and S2. No gallops, murmurs, or rubs. Normal PMI, no JVD. No pulse deficits. Respiratory: Lungs have equal breath sounds bilaterally, clear to auscultation and percussion. No rales, rhonchi or wheezes noted. No increased work of breathing, no retractions or nasal flaring. Abdomen/GI: Soft, non-tender, with normal bowel sounds. No distension or tympany. No guarding or rebound. No evidence of tenderness throughout. Back: No spinal tenderness. No costovertebral tenderness. Full range of motion. MS/ Extremity: Pulses equal, no cyanosis. Neurovascular intact. Full, normal range of motion. Neuro: Awake and alert, GCS 15, oriented to person, place, time, and situation. Cranial nerves II-XII grossly intact. Motor strength 5/5 in all extremities. Sensory grossly intact. Cerebellar exam normal. Normal gait. 09:19 Head/face: 1 cm laceration just superior lateral to the eyebrow. No other abnormalities noted.. Vital Signs: 08:51 BP 143 / 89; Pulse 109; Resp 18; Temp 98.8; Pulse Ox 100% ; Weight 79.38 kg; Height 5 ap3 ft. 8 in. ; Pain 2/10; 08:51 Body Mass Index 26.61 (79.38 kg, 172.72 cm) ap3 08:51 Pain Scale: Adult ap3 Laceration: 09:19 Wound Repair of 1cm ( 0.4in ) subcutaneous laceration to face. Distal sp3 neuro/vascular/tendon intact. MDM: 08:36 Medical Screening Exam initiated sp3 09:20 Data reviewed: vital signs, nurses notes. ED course: Laceration repaired with sp3 Dermabond. Area was cleaned and Dermabond applied multiple layers free of eye and ear. Appropriate discharge instructions given patient will be discharged home at this time.. Administered Medications: No medications were administered Disposition Summary: 05/07/24 09:21 Discharge Ordered Notes: Location: Home sp3 Condition: Stable sp3 Diagnosis - 1 cm laceration to the face with repair sp3 Followup: sp3 - With: Private Physician - When: Upon discharge from the Emergency Department - Reason: Continuance of care Discharge Instructions: - Discharge Summary Sheet sp3 - Tissue Adhesive Wound Care sp3 Forms: - Work release form ap3 - Medication Reconciliation Form sp3 - Antibiotic Education sp3 - Prescription Opioid Use sp3 - Patient Portal Instructions sp3 - Leadership Thank You Letter sp3 Signatures: Celeste Royal RN RN ap3 Missy Henson MD MD sp3
[2024-05-07 09:33] VITALS: BP 143/89; TEMP 98.8; O2SAT 100
== END 2024-05-07 09:29 | disposition home or self-care (01) ==
LOC: ER 08:31
DX: S01.81XA Laceration without foreign body of other part of head, initial encounter (principal)
CPT/HCPCS: 12011; 99283